=== PATIENT | male | born 1965 | race Caucasian/White ===

== ENCOUNTER 2017-11-10 12:14 | Emergency (ER) | payer BC ==
[2017-11-10] MEDS: LIDOCAINE WITH 8.4% SOD BICARB 3 ML DISP.SYRIN. INJ (13:00)
== END 2017-11-10 13:10 | disposition home or self-care (01) ==
LOC: ER 12:14
DX: S60.451A Superficial foreign body of left index finger, initial encounter (principal); E78.00 Pure hypercholesterolemia, unspecified; I10 Essential (primary) hypertension; Z88.5 Allergy status to narcotic agent; W45.8XXA Other foreign body or object entering through skin, initial encounter; Y93.89 Activity, other specified; Y92.89 Other specified places as the place of occurrence of the external cause; Y99.8 Other external cause status
CPT/HCPCS: 10120; 99284

== ENCOUNTER 2018-11-24 18:11 | Inpatient (IN) | payer BC ==
[~2018-11-24] VITALS: Ht 172.7 cm; Wt 108.5 kg
[~2018-11-24 18:11] MED LIST: CEPH-264 PO
[2018-11-24] MEDS ORDERED: ACETAMINOPHEN 500 MG TABLET PO ONE (19:00)
[2018-11-24] MEDS ORDERED: IV NORMAL SALINE 1000ML BAG 1,000 ML IV ONE (19:00)
[2018-11-24 19:10] LABS: BASO % 0 % (0-3); EOS # 0.1 x10^3/uL (0.0-0.7); EOS % 1 % (0-3); HEMATOCRIT 42.7 % (39.0-53.0); HEMOGLOBIN 14.4 g/dL (13.0-17.5); LYMPH # 1.9 x10^3/uL (1.0-4.8); LYMPH % 25 % (24-48); MEAN CORPUSCULAR HEMOGLOBIN 29 pg (25-35); MEAN CORPUSCULAR HGB CONC 34 g/dL (31-37); MEAN CORPUSCULAR VOLUME 86 fL (79-100); MONO # 1.1 x10^3/uL (0.0-1.1); MONO % 14 % (0-9); NEUT # 4.7 x10^3uL (1.8-7.7); NEUT % 60 % (31-73); PLATELET COUNT 192 x10^3/uL (140-400); RED BLOOD COUNT 4.96 x10^6/uL (4.30-5.70); RED CELL DISTRIBUTION WIDTH 14.2 % (11.5-14.5); WHITE BLOOD COUNT 7.8 x10^3/uL (4.0-11.0)
[2018-11-24 19:12] LABS: BILIRUBIN,URINE NEGATIVE (NEG); CLARITY,URINE TURBID; COLOR,URINE YELLOW; NITRITE,URINE NEGATIVE (NEG); PROTEIN,URINE NEGATIVE (NEG-TRACE); UROBILINOGEN,URINE 0.2 mg/dL (0.2 mg/dL)
[2018-11-24 19:15] LABS: AMORPHOUS SEDIMENT,UR PRESENT /HPF; BACTERIA,URINE 0 /HPF (0-FEW); WBC,URINE 0 /HPF (0-4)
[2018-11-24 19:30] LABS: ALBUMIN 3.8 g/dL (3.4-5.0); ALBUMIN/GLOBULIN RATIO 1.1 (1.0-1.7); CREATININE 1.1 mg/dL (0.7-1.3); TOTAL BILIRUBIN 0.3 mg/dL (0.2-1.0); TOTAL PROTEIN 7.4 g/dL (6.4-8.2)
[2018-11-24] MEDS ORDERED: LIDO:MAALOX 1:1 20 ML SINGLE DOSE. SWSW ONE (19:45)
[2018-11-24] MEDS ORDERED: POTASSIUM CHLORIDE 20 MEQ/15 ML ORAL LIQUID. PO ONE (20:00)
--- NOTE | 2018-11-24 20:11 | RAD ---
CT head without contrast PQRS statement: CT scans at this facility use dose reduction including either automated exposure control, iterative reconstructions, and /or weight based radiation dosing via mA and kV modification when appropriate to reduce radiation dose to as low as reasonably achievable. HISTORY: Headache, fever. FINDINGS: Mild cervical tonsil ectopia at the foramen magnum. Extensive frontal and parietal white matter hypoattenuation. There may be a chronic infarct measuring 2 cm at the right frontal lobe above the sylvian fissure. No intracranial hemorrhage, mass or hydrocephalus. Left maxillary sinus fluid extending outside the [id number]. Orbits, mastoids and bones are unremarkable. IMPRESSION: 1. No acute intracranial CT abnormality. 2. Left maxillary sinus fluid could represent sinusitis. 3. Extensive cerebral frontal and parietal lobe white matter hypoattenuation could represent advanced changes of chronic microvascular ischemic disease or changes of extensive inflammatory white matter demyelination such as from multiple sclerosis. 4. 2 cm wedge-shaped chronic right frontal infarct. Electronically signed by: Scott Mesa MD (11/24/2018 8:08 PM) [facility]
[2018-11-24] MEDS ORDERED: ASPIRIN CHEWABLE 81 MG TABLET. PO ONE (21:30)
[2018-11-24] MEDS ORDERED: MORPHINE SULFATE 4 MG/ML VIAL. IV PRN (22:30)
[2018-11-24] MEDS ORDERED: IV NORMAL SALINE 1000ML BAG 1,000 ML IV SCH (22:30)
[2018-11-24] MEDS ORDERED: DOXYCYCLINE HYCLATE 100 MG in IV DEXTROSE 5% 100ML 100 ML IV ONE (23:00)
--- NOTE | 2018-11-24 23:06 | RAD ---
AP portable chest radiograph 11/24/2018 Clinical History: Chest pain and fever. An AP erect portable digital radiograph of the chest was obtained. Comparison study is dated 08/06/2006. The cardiac silhouette is mildly enlarged. The thoracic aorta is tortuous. No acute pulmonary infiltrate is seen. No pleural effusion or pneumothorax is noted. The osseous structures are grossly intact. Impression: No acute abnormality is seen. Electronically signed by: Chevy Mcfarlane MD (11/24/2018 11:03 PM) [facility]
[2018-11-24 23:35] VITALS: BP 166/84
[2018-11-24] MEDS ORDERED: AMLO10TA8 PO (23:51)
[2018-11-24] MEDS ORDERED: CRESTOR5 MG PO (23:51)
[2018-11-24] MEDS ORDERED: OMEP40CA5 PO (23:51)
[2018-11-24] MEDS ORDERED: LOSA100T14 PO (23:51)
[2018-11-25] VITALS (9 sets, daily range): BP systolic 137–180; BP diastolic 79–98
[2018-11-25] MEDS ORDERED: OXYM-27 NS (01:25)
--- NOTE | 2018-11-25 01:50 | NUR ---
Patient admitted to CVC from ED with CP as diagnosis. Patient denies CP on admission to floor. RN explained where call light is. how to operated TV. Changed patient to tele gown with pocket obtained vitals admission assessment. RN will continue to monitor.
--- NOTE | 2018-11-25 02:53 | PHYS DOC ---
Past Medical History Past Medical History: GERD, High Cholesterol, Hypertension Past Surgical History: Other Additional Past Surgical Histo: KIDNEY STONE Alcohol Use: Occasionally Drug Use: Marijuana Social History Narrative: LAST USE LAST NIGHT Adult General Chief Complaint Chief Complaint: CHEST PAIN HPI HPI Patient is a 52 year old male presents with multiple complaints. His initial primary chief complaint was that of some chest discomfort described as a tightness and aching across the front of his chest he had a driving to work and also driving home he says it is worse when he coughs he is mostly a dry cough occasional yellow sputum in addition he has a headache he says he has had a headache for the last 24 hours front of the head feels like pressure he feels l irvin his sinuses are clogged up. In addition he just feels weak overall he felt like both of his legs were pretty weak. He was Hard for him to get around when he came home from work he just laid down she did not want to walk anymore. He does report a prior history of may be is some strokelike symptoms about 25 years ago. He says that he woke up in 1989 and he could not move his left side but he got up and went to work anyway and it gradually went away. Currently not having any numbness tingling or asymmetric weakness. Review of Systems Review of Systems Constitutional: Denies fever or chills [] Eyes: Denies change in visual acuity, redness, or eye pain [] HENT: Denies nasal congestion or sore throat [] Respiratory: Denies cough or shortness of breath [] Cardiovascular: No additional information not addressed in HPI [] GI: Denies abdominal pain, nausea, vomiting, bloody stools or diarrhea [] : Denies dysuria or hematuria [] Musculoskeletal: Denies back pain or joint pain [] Integument: Denies rash or skin lesions [] Neurologic: Denies headache, focal weakness or sensory changes [] Endocrine: Denies polyuria or polydipsia [] All other systems were reviewed and found to be within normal limits, except as documented in this note. Current Medications Current Medications Current Medications Medications (Trade) Dose Ordered Sig/Bg Start Time Stop Time Status Last Admin Dose Admin Acetaminophen (Tylenol) 1,000 mg 1X ONCE 11/24/18 19:00 11/24/18 19:01 DC 11/24/18 19:00 1,000 MG Multi-Ingredient Mouthwash/Gargle (Gi Cocktail) 20 ml 1X ONCE 11/24/18 19:45 11/24/18 19:46 DC 11/24/18 19:59 20 ML Potassium Chloride (KCl Oral Soln) 40 meq 1X ONCE 11/24/18 20:00 11/24/18 20:01 DC 11/24/18 19:59 40 MEQ Sodium Chloride 1,000 ml @ 1,000 mls/hr 1X ONCE 11/24/18 19:00 11/24/18 19:59 DC 11/24/18 19:01 1,000 MLS/HR Allergies Allergies Allergies Coded Allergies Type Severity Reaction Last Updated Verified hydrocodone Allergy Intermediate Itching 11/10/17 Yes Physical Exam Physical Exam Constitutional: Well developed, well nourished, no acute distress, non-toxic appearance. [] HENT: Normocephalic, atraumatic, bilateral external ears normal, oropharynx moist, no oral exudates, nose normal. []Patient does have some frontal area sinus tenderness Eyes: PERRLA, EOMI, conjunctiva normal, no discharge. [] Neck: Normal range of motion, no tenderness, supple, no stridor. [] Cardiovascular:Heart rate regular rhythm, no murmur [] Lungs & Thorax: Bilateral breath sounds clear to auscultation [] Abdomen: Bowel sounds normal, soft, no tenderness, no masses, no pulsatile fifi s. [] Skin: Warm, dry, no erythema, no rash. [] Back: No tenderness, no CVA tenderness. [] Extremities: No tenderness, no cyanosis, no clubbing, ROM intact, no edema. [] Neurologic: Alert and oriented X 3, normal motor function, normal sensory function, no focal deficits noted. []NIH stroke scale is 0 Psychologic: Affect normal, judgement normal, mood normal. [] Current Patient Data Vital Signs Vital Signs Date Time Temp Pulse Resp B/P (MAP) Pulse Ox O2 Delivery O2 Flow Rate FiO2 11/24/18 21:00 86 20 151/79 (103) 97 Room Air 11/24/18 18:17 99.0 99.0 Lab Values Laboratory Tests Test 11/24/18 18:22 11/24/18 19:02 White Blood Count 7.8 x10^3/uL (4.0-11.0) Red Blood Count 4.96 x10^6/uL (4.30-5.70) Hemoglobin 14.4 g/dL (13.0-17.5) Hematocrit 42.7 % (39.0-53.0) Mean Corpuscular Volume 86 fL (79-100) Mean Corpuscular Hemoglobin 29 pg (25-35) Mean Corpuscular Hemoglobin Concent 34 g/dL (31-37) Red Cell Distribution Width 14.2 % (11.5-14.5) Platelet Count 192 x10^3/uL (140-400) Neutrophils (%) (Auto) 60 % (31-73) Lymphocytes (%) (Auto) 25 % (24-48) Monocytes (%) (Auto) 14 % (0-9) H Eosinophils (%) (Auto) 1 % (0-3) Basophils (%) (Auto) 0 % (0-3) Neutrophils # (Auto) 4.7 x10^3uL (1.8-7.7) Lymphocytes # (Auto) 1.9 x10^3/uL (1.0-4.8) Monocytes # (Auto) 1.1 x10^3/uL (0.0-1.1) Eosinophils # (Auto) 0.1 x10^3/uL (0.0-0.7) Basophils # (Auto) 0.0 x10^3/uL (0.0-0.2) Sodium Level 140 mmol/L (136-145) Potassium Level 3.0 mmol/L (3.5-5.1) L Chloride Level 102 mmol/L (98-107) Carbon Dioxide Level 28 mmol/L (21-32) Anion Gap 10 (6-14) Blood Urea Nitrogen 12 mg/dL (8-26) Creatinine 1.1 mg/dL (0.7-1.3) Estimated GFR (Cockcroft-Gault) 70.0 BUN/Creatinine Ratio 11 (6-20) Glucose Level 107 mg/dL (70-99) H Calcium Level 9.0 mg/dL (8.5-10.1) Total Bilirubin 0.3 mg/dL (0.2-1.0) Aspartate Amino Transferase (AST) 29 U/L (15-37) Alanine Aminotransferase (ALT) 49 U/L (16-63) Alkaline Phosphatase 108 U/L (46-116) Creatine Kinase 145 U/L (39-308) Troponin I Quantitative < 0.017 ng/mL (0.000-0.055) Total Protein 7.4 g/dL (6.4-8.2) Albumin 3.8 g/dL (3.4-5.0) Albumin/Globulin Ratio 1.1 (1.0-1.7) Lipase 176 U/L (73-393) Urine Collection Type Unknown Urine Color Yellow Urine Clarity Turbid Urine pH 7.0 Urine Specific [place] 1.015 Urine Protein Negative mg/dL (NEG-TRACE) Urine Glucose (UA) Negative mg/dL (NEG) Urine Ketones (Stick) Negative mg/dL (NEG) Urine Blood Small (NEG) Urine Nitrite Negative (NEG) Urine Bilirubin Negative (NEG) Urine Urobilinogen Dipstick 0.2 mg/dL (0.2 mg/dL) Urine Leukocyte Esterase Negative (NEG) Urine RBC 1-2 /HPF (0-2) Urine WBC 0 /HPF (0-4) Urine Amorphous Sediment Present /HPF Urine Bacteria 0 /HPF (0-FEW) Laboratory Tests 11/24/18 18:22 Laboratory Tests 11/24/18 18:22 EKG EKG []Normal sinus rhythm rate of 78 there is some borderline nonspecific ST changes in 1 and aVL i could argue for subcentimeter depression potentially no STEMI Radiology/Procedures Radiology/Procedures IMPRESSION: 1. No acute intracranial CT abnormality. 2. Left maxillary sinus fluid could represent sinusitis. 3. Extensive cerebral frontal and parietal lobe white matter hypoattenuation could represent advanced changes of chronic microvascular ischemic disease or changes of extensive inflammatory white matter demyelination such as from multiple sclerosis. 4. 2 cm wedge-shaped chronic right frontal infarct. Electronically signed by: Scott Mesa MD (11/24/2018 8:08 PM) [facility] [] Impressions: Comparison study is dated 08/06/2006. The cardiac silhouette is mildly enlarged. The thoracic aorta is tortuous. No acute pulmonary infiltrate is seen. No pleural effusion or pneumothorax is noted. The osseous structures are grossly intact. Impression: No acute abnormality is seen. Electronically signed by: Chevy Mcfarlane MD (11/24/2018 11:03 PM) [facility] DICTATED and SIGNED BY: CHEVY MCFARLANE MD DATE: 11/24/18 7631 Course & Med Decision Making Course & Med Decision Making Pertinent Labs and Imaging studies reviewed. (See chart for details) []52-year-old male history of smoking obesity hypertension hyperlipidemia presenting with multiple complaints. He does have a temp of 100.4 He complained of some chest pain there was a component of worsening with cough but also some typical features EKG was not stone cold normal first troponin negative. Multiple risk factors for coronary artery disease. CT head was done due to complaint of headache and generalized weakness. age- indeterminate infarct noted patient is not having any focal neurologic findings at this time strength intact against resistance in all 4 extremities noted the white matter changes as well as may be age related in nature less likely to be a demyelinating lesion of some kind Also sinusitis noted on CT scan. Given the fever and the generalized weakness IV antibiotics were ordered I spoke with Dr. Richardson plan to admit for serial troponins neurology cons ultation and/or MRI and antibiotics Lactic acid was normal Dragon Disclaimer Dragon Disclaimer This electronic medical record was generated, in whole or in part, using a voice recognition dictation system. Departure Departure Impression: Primary Impression: Chest pain Disposition: ADMITTED INPATIENT Admitting Physician: Other Condition: STABLE Referrals: UNKNOWN PCP NAME (PCP) DEYVI HAZEL MD November 25, 2018 02:53
--- NOTE | 2018-11-25 06:45 | EKG ---
[facility] [address] [place] [address] Test Date: 2018-11-24 Test Time: 18:17:28 Pat Name: BERTRAM GALVAN Department: Room: 262 1 Gender: M Marketing Operations Associate: : [id number] Requested By: DEYVI HAZEL Order Number: [id number] Reading MD: Luis Montiel Measurements Intervals [place] Rate: 78 P: 31 ME: 156 QRS: -14 QRSD: 88 T: 49 QT: 362 QTc: 416 Interpretive Statements SINUS RHYTHM LEFTWARD AXIS Electronically Signed On 12-19-2018 11:41:37 CDT by Luis Montiel
--- NOTE | 2018-11-25 08:08 | PDOC1 ---
History and Physical Date of Admission Date of Admission DATE: 11/25/18 TIME: 08:07 Identification/Chief Complaint Chief Complaint Chest pain Source Source: Caregiver, Chart review, Patient History of Present Illness History of Present Illness Patient is a 52 year old male w/ PMHx smoker, obesity, HTN, HLD, KING on CPAP, left acquired hearing loss who presents with multiple complaints. His initial primary chief complaint was that of some chest discomfort described as a tightness and aching across the front of his chest he had a driving to work and also driving home he says it is worse when he coughs he is mostly a dry cough occasional yellow sputum in addition he has a headache he says he has had a headache for the last 24 hours front of the head feels like pressure he feels like his sinuses are clogged up. In addition he just feels weak overall he felt like both of his legs were pretty weak. He was hard for him to get around when he came home from work he just laid down she did not want to walk anymore. He notes that sporadically over the past couple of weeks his right arm has given out on him while at work. He also notes over the past 6 months he has been having small urinary incontinence and has had nocturnal enuresis x1 as well as a couple of small episodes of fecal incontinence. He also notes when he moves his eyes left he has been told he turns his head, but he does not note this until forced, then develops double vision and visual straining. On further review he notes intermittent difficulties swallowing and has been told at times that he mumbles though he feels he does not actually mumble. He does report a prior history of may be is some strokelike symptoms about 25 years ago. He says that he woke up in 1989 and he could not move his left side but he got up and went to work anyway and it gradually went away. Currently not having any numbness tingling or asymmetric weakness. In ED had EKG with slight left axis deviation, otherwise NSR. Troponin negative. CT head showed extensive cerebral frontal and parietal lobe white matter hypoattenuation could represent advanced changes of chronic microvascular ischemic disease or changes of extensive inflammatory white matter demyelination such as from multiple sclerosis and a 2 cm wedge-shaped chronic right frontal infarct. He was not aware of any prior abnormal head imaging. Past Medical History Cardiovascular: HTN Pulmonary: Other (KING) CENTRAL NERVOUS SYSTEM: TIA GI: No pertinent hx Heme/Onc: No pertinent hx Hepatobiliary: No pertinent hx Psych: No pertinent hx Musculoskeletal: Weakness Rheumatologic: No pertinent hx Infectious disease: No pertinent hx ENT: No pertinent hx Renal/: No pertinent hx Endocrine: No pertinent hx Dermatology: No pertinent hx Past Surgical History Past Surgical History: No pertinent history Family History Family History: Diabetes (Mother), High Cholestrol, Hypertension Social History Smoke: 1 pack per day ALCOHOL: rare Drugs: Marijuana Current Medications Current Medications Current Medications Acetaminophen (Tylenol) 1,000 mg 1X ONCE PO Last administered on 11/24/18at 19:00; Start 11/24/18 at 19:00; Stop 11/24/18 at 19:01; Status DC Sodium Chloride 1,000 ml @ 1,000 mls/hr 1X ONCE IV Last administered on 11/24/18at 19:01; Start 11/24/18 at 19:00; Stop 11/24/18 at 19:59; Status DC Multi-Ingredient Mouthwash/Gargle (Gi Cocktail) 20 ml 1X ONCE SWSW Last administered on 11/24/18at 19:59; Start 11/24/18 at 19:45; Stop 11/24/18 at 19:46; Status DC Potassium Chloride (KCl Oral Soln) 40 meq 1X ONCE PO Last administered on 11/24/18at 19:59; Start 11/24/18 at 20:00; Stop 11/24/18 at 20:01; Status DC Aspirin (Children'S Aspirin) 324 mg 1X ONCE PO Last administered on 11/24/18at 21:28; Start 11/24/18 at 21:30; Stop 11/24/18 at 21:31; Status DC Morphine Sulfate (Morphine Sulfate) 4 mg PRN Q2HR PRN IV SEVERE PAIN; Start 11/24/18 at 22:30; Stop 11/25/18 at 22:29 Sodium Chloride 1,000 ml @ 75 mls/hr [id number] IV Last administered on 11/24/18at 22:39; Start 11/24/18 at 22:30; Stop 11/25/18 at 22:29 Doxycycline Hyclate 100 mg/ Dextrose 100 ml @ 50 mls/hr 1X ONCE IV Last administered on 11/24/18at 22:38; Start 11/24/18 at 23:00; Stop 11/25/18 at 00:59; Status DC Active Scripts Active Keflex (Cephalexin) 500 Mg Capsule 1 Cap PO TID Reported Nasal Decongestant (Oxymetazoline Hcl) 30 Ml [place] 30 Ml NS HS Crestor (Rosuvastatin Calcium) 5 Mg Tablet 5 Mg PO HS Omeprazole 40 Mg Capsule.dr 1 Cap PO DAILY Losartan Potassium 100 Mg Tablet 100 Mg PO DAILY Amlodipine Besylate 10 Mg Tablet 10 Mg PO DAILY Allergies Allergies: Coded Allergies: hydrocodone (Verified Allergy, Intermediate, Itching, 11/10/17) ROS General: YES: Fatigue, Malaise; No: Chills, Night Sweats, Appetite, Other PSYCHOLOGICAL ROS: No: Anxiety, Behavioral Disorder, Concentration difficultie, Decreased libido, Depression, Disorientation, Hallucinations, Hostility, Irritablity, Memory difficulties, Mood Swings, Obsessive thoughts, Physical abuse, Sexual abuse, Sleep disturbances, Suicidal ideation, Other Eyes: Yes Blurry vision; No Decreased vision, No Double vision, No Dry eyes, No Excessive tearing, No Eye Pain, No Itchy Eyes, No Loss of vision, No Photophobia, No Scotomata, No Uses contacts, No Uses glasses, No Other HEENT: YES: Heacaches, Nasal congestion, Vocal changes; No: Visual Changes, Hearing change, Nasal discharge, Oral lesions, Sinus pain, Sore Throat, Epistaxis, Sneezing, Snoring, Tinnitus, Vertigo, Other ALLERGY AND IMMUNOLOGY: No: Hives, Insect Bite Sensitivity, Itchy/Watery Eyes, Nasal Congestion, Post Nasal Drip, Seasonal Allergies, Other Hematological and Lymphatic: No: Bleeding Problems, Blood Clots, Blood Transfusions, Brusing, Night Sweats, Pallor, Swollen Lymph Nodes, Other ENDOCRINE: No: Breast Changes, Galactorrhea, Hair Pattern Changes, Hot Flashes, Malaise/lethargy, Mood Swings, Palpitations, Polydipsia/polyuria, Skin Changes, Temperature Intolerance, Unexpected Weight Changes, Other Breast: No New/Changing Breast Lumps, No Nipple changes, No Nipple discharge, No Other Respiratory: No: Cough, Hemoptysis, Orthopnea, Pleuritic Pain, Shortness of breath, SOB with excertion, Sputum Changes, Stridor, Tachypnea, Wheezing, Other Cardiovascular: No Chest Pain, No Palpitations, No Orthopnea, No Paroxysmal Noc. Dyspnea, No Edema, No Lt Headedness, No Other Gastrointestinal: No Nausea, No Vomiting, No Abdominal Pain, No Diarrhea, No Co nstipation, No Melena, No Hematochezia, No Other Genitourinary: No Dysuria, No Frequency, No Incontinence, No Hematuria, No Retention, No Discharge, No Urgency, No Pain, No Flank Pain, No Other, No , No , No , No , No , No , No Musculoskeletal: Yes Gait Disturbance, Yes Muscular Weakness; No Joint Pain, No Joint Stiffness, No Joint Swelling, No Muscle Pain, No Pain In:, No Swelling In:, No Other Neurological: Yes Numbness/Tingling, Yes Speech Problems, Yes Weakness; No Behavorial Changes, No Bowel/Bladder ControlChng, No Confusion, No Dizziness, No Gait Disturbance, No Headaches, No Impaired Coord/balance, No Memory Loss, No Seizures, No Tremors, No Visual Changes, No Other Skin: No Dry Skin, No Eczema, No Hair Changes, No Lumps, No Mole Changes, No Mottling, No Nail Changes, No Pruritus, No Rash, No Skin Lesion Changes, No Other, No Acne Physical Exam General: Alert, Oriented X3, Cooperative, No acute distress HEENT: Atraumatic, PERRLA, EOMI, Mucous membr. moist/pink Lungs: Clear to auscultation, Normal air movement Heart: S1S2, RRR, no gallops, no murmurs Abdomen: Normal bowel sounds, Soft, No tenderness, No hepatosplenomegaly, No masses Rectal Exam: not examined Extremities: No clubbing, No cyanosis, No edema, Normal pulses, No tenderness/swelling Skin: No rashes, No breakdown, No significant lesion Neuro: Normal gait, Normal speech, Strength at 5/5 X4 ext, Normal tone, Sensation intact, Cranial nerves 3-12 NL, Reflexes 2+ Psych/Mental Status: Mental status NL, Mood NL Vitals Vitals Vital Signs Date Time Temp Pulse Resp B/P (MAP) Pulse Ox O2 Delivery O2 Flow Rate FiO2 11/25/18 07:45 180/89 (119) 11/25/18 07:00 98.2 80 18 93 Room Air 98.2 Labs Labs Laboratory Tests Test 11/24/18 18:22 11/24/18 19:02 11/25/18 01:20 11/25/18 04:20 White Blood Count 7.8 x10^3/uL (4.0-11.0) Red Blood Count 4.96 x10^6/uL (4.30-5.70) Hemoglobin 14.4 g/dL (13.0-17.5) Hematocrit 42.7 % (39.0-53.0) Mean Corpuscular Volume 86 fL (79-100) Mean Corpuscular Hemoglobin 29 pg (25-35) Mean Corpuscular Hemoglobin Concent 34 g/dL (31-37) Red Cell Distribution Width 14.2 % (11.5-14.5) Platelet Count 192 x10^3/uL (140-400) Neutrophils (%) (Auto) 60 % (31-73) Lymphocytes (%) (Auto) 25 % (24-48) Monocytes (%) (Auto) 14 % (0-9) Eosinophils (%) (Auto) 1 % (0-3) Basophils (%) (Auto) 0 % (0-3) Neutrophils # (Auto) 4.7 x10^3uL (1.8-7.7) Lymphocytes # (Auto) 1.9 x10^3/uL (1.0-4.8) Monocytes # (Auto) 1.1 x10^3/uL (0.0-1.1) Eosinophils # (Auto) 0.1 x10^3/uL (0.0-0.7) Basophils # (Auto) 0.0 x10^3/uL (0.0-0.2) Sodium Level 140 mmol/L (136-145) Potassium Level 3.0 mmol/L (3.5-5.1) Chloride Level 102 mmol/L (98-107) Carbon Dioxide Level 28 mmol/L (21-32) Anion Gap 10 (6-14) Blood Urea Nitrogen 12 mg/dL (8-26) Creatinine 1.1 mg/dL (0.7-1.3) Estimated GFR (Cockcroft-Gault) 70.0 BUN/Creatinine Ratio 11 (6-20) Glucose Level 107 mg/dL (70-99) Calcium Level 9.0 mg/dL (8.5-10.1) Total Bilirubin 0.3 mg/dL (0.2-1.0) Aspartate Amino Transf (AST/SGOT) 29 U/L (15-37) Alanine Aminotransferase (ALT/SGPT) 49 U/L (16-63) Alkaline Phosphatase 108 U/L (46-116) Creatine Kinase 145 U/L (39-308) Troponin I Quantitative < 0.017 ng/mL (0.000-0.055) 0.021 ng/mL (0.000-0.055) 0.030 ng/mL (0.000-0.055) Total Protein 7.4 g/dL (6.4-8.2) Albumin 3.8 g/dL (3.4-5.0) Albumin/Globulin Ratio 1.1 (1.0-1.7) Lipase 176 U/L (73-393) Urine Collection Type Unknown Urine Color Yellow Urine Clarity Turbid Urine pH 7.0 Urine Specific [place] 1.015 Urine Protein Negative mg/dL (NEG-TRACE) Urine Glucose (UA) Negative mg/dL (NEG) Urine Ketones (Stick) Negative mg/dL (NEG) Urine Blood Small (NEG) Urine Nitrite Negative (NEG) Urine Bilirubin Negative (NEG) Urine Urobilinogen Dipstick 0.2 mg/dL (0.2 mg/dL) Urine Leukocyte Esterase Negative (NEG) Urine RBC 1-2 /HPF (0-2) Urine WBC 0 /HPF (0-4) Urine Amorphous Sediment Present /HPF Urine Bacteria 0 /HPF (0-FEW) Lactic Acid Level 0.7 mmol/L (0.4-2.0) Laboratory Tests Test 11/24/18 18:22 11/24/18 19:02 11/25/18 01:20 11/25/18 04:20 White Blood Count 7.8 x10^3/uL (4.0-11.0) Red Blood Count 4.96 x10^6/uL (4.30-5.70) Hemoglobin 14.4 g/dL (13.0-17.5) Hematocrit 42.7 % (39.0-53.0) Mean Corpuscular Volume 86 fL (79-100) Mean Corpuscular Hemoglobin 29 pg (25-35) Mean Corpuscular Hemoglobin Concent 34 g/dL (31-37) Red Cell Distribution Width 14.2 % (11.5-14.5) Platelet Count 192 x10^3/uL (140-400) Neutrophils (%) (Auto) 60 % (31-73) Lymphocytes (%) (Auto) 25 % (24-48) Monocytes (%) (Auto) 14 % (0-9) Eosinophils (%) (Auto) 1 % (0-3) Basophils (%) (Auto) 0 % (0-3) Neutrophils # (Auto) 4.7 x10^3uL (1.8-7.7) Lymphocytes # (Auto) 1.9 x10^3/uL (1.0-4.8) Monocytes # (Auto) 1.1 x10^3/uL (0.0-1.1) Eosinophils # (Auto) 0.1 x10^3/uL (0.0-0.7) Basophils # (Auto) 0.0 x10^3/uL (0.0-0.2) Sodium Level 140 mmol/L (136-145) Potassium Level 3.0 mmol/L (3.5-5.1) Chloride Level 102 mmol/L (98-107) Carbon Dioxide Level 28 mmol/L (21-32) Anion Gap 10 (6-14) Blood Urea Nitrogen 12 mg/dL (8-26) Creatinine 1.1 mg/dL (0.7-1.3) Estimated GFR (Cockcroft-Gault) 70.0 BUN/Creatinine Ratio 11 (6-20) Glucose Level 107 mg/dL (70-99) Calcium Level 9.0 mg/dL (8.5-10.1) Total Bilirubin 0.3 mg/dL (0.2-1.0) Aspartate Amino Transf (AST/SGOT) 29 U/L (15-37) Alanine Aminotransferase (ALT/SGPT) 49 U/L (16-63) Alkaline Phosphatase 108 U/L (46-116) Creatine Kinase 145 U/L (39-308) Troponin I Quantitative < 0.017 ng/mL (0.000-0.055) 0.021 ng/mL (0.000-0.055) 0.030 ng/mL (0.000-0.055) Total Protein 7.4 g/dL (6.4-8.2) Albumin 3.8 g/dL (3.4-5.0) Albumin/Globulin Ratio 1.1 (1.0-1.7) Lipase 176 U/L (73-393) Urine Collection Type Unknown Urine Color Yellow Urine Clarity Turbid Urine pH 7.0 Urine Specific [place] 1.015 Urine Protein Negative mg/dL (NEG-TRACE) Urine Glucose (UA) Negative mg/dL (NEG) Urine Ketones (Stick) Negative mg/dL (NEG) Urine Blood Small (NEG) Urine Nitrite Negative (NEG) Urine Bilirubin Negative (NEG) Urine Urobilinogen Dipstick 0.2 mg/dL (0.2 mg/dL) Urine Leukocyte Esterase Negative (NEG) Urine RBC 1-2 /HPF (0-2) Urine WBC 0 /HPF (0-4) Urine Amorphous Sediment Present /HPF Urine Bacteria 0 /HPF (0-FEW) Lactic Acid Level 0.7 mmol/L (0.4-2.0) Images Images CT head - 1. No acute intracranial CT abnormality. 2. Left maxillary sinus fluid could represent sinusitis. 3. Extensive cerebral frontal and parietal lobe white matter hypoattenuation could represent advanced changes of chronic microvascular ischemic disease or changes of extensive inflammatory white matter demyelination such as from multiple sclerosis. 4. 2 cm wedge-shaped chronic right frontal infarct. CXR - Cardiac silhouette is enlarged. No acute abnormality is seen. VTE Prophylaxis Ordered VTE Prophylaxis Devices: Yes VTE Pharmacological Prophylaxi: No Assessment/Plan Assessment/Plan A/P: Chest discomfort - is epigastric discomfort and weakness more than pain. Negative initial EKG - NSR with slight left axis, no TWI or ST segment changes and troponin negative. No abnormal telemetry for the past 14 hours Bilateral leg weakness - with right arm weakness, fecal and urinary incontinence and left visual problems with CT findings concerning for possible lesions I am concerned this may be a presentation of MS. Will get MRI brain and c-spine and consult neuro. May need oligoclonal bands, LP checked as well. I have d/w him and his . 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
[2018-11-25 08:33] LABS: CALCIUM 8.6 mg/dL (8.5-10.1); GFR 78.2; MAGNESIUM 1.9 mg/dL (1.8-2.4); POTASSIUM 3.3 mmol/L (3.5-5.1)
[2018-11-25] MEDS: LOSARTAN POTASSIUM 50 MG TABLET. PO SCH (09:21)
[2018-11-25] MEDS: amLODIPine BESYLATE 10 MG TABLET PO SCH (09:22)
[2018-11-25] MEDS ORDERED: POTASSIUM CHLORIDE 20 MEQ TABLET.ER. PO ONE (09:30)
[2018-11-25] MEDS ORDERED: MAGNESIUM SULFATE 1GM 100 ML IV ONE (09:30)
[2018-11-25] MEDS: ACETAMINOPHEN 325 MG TABLET. PO PRN (10:16)
--- NOTE | 2018-11-25 11:51 | NUR ---
Pt transferred from [facility] at approximately 1151. Client was A&Ox4, VSS, denies pain/N/V. will continue to monitor.
[2018-11-25] MEDS ORDERED: GADOTERATE 5 MMOL/10ML VIAL. IVP ONE ×2 (16:00)
--- NOTE | 2018-11-25 17:42 | PDOC2 ---
NEUROLOGY CONSULT Date of Admission Date of Admission DATE: 11/25/18 TIME: 17:19 Reason for Consult Reason for Consult: IMPRESSION: Headaches. Vision disturbances. LE weakness and numbness x 1 day. UE numbness in the past. MS? HTN. HLD. GERD. Smoking x 40 years. RECOMMENDATIONS/PLAN: Brain MRI w/wo contrast. C-spine MRI w/wo contrast. Lab: see orders. LP maybe needed. Smoking cessation. Discussed with his at bedside on 11/25/18. HISTORY OF THE PRESENT ILLNESS: This is a 52 -year-old male with longstanding history of smoking 1 pack a day for over 40 years and PMH of HTN, HLD, KING on CPAP, left acquired hearing loss. His initial primary chief complaint was that of some chest discomfort described as a tightness and aching across the front of his chest he had a driving to work and also driving home he says it is worse when he coughs he is mostly a dry cough occasional yellow sputum in addition he has a headache he says he has had a headache for the last 24 hours front of the head feels like pressure he feels like his sinuses are clogged up. He stated he did not feeling well but he had difficulties describe his feeling. He stated he had weakness in his bilateral LE for 1-2 days, but not urinary of bowel dysfunction. He said he had symptoms of numbness in his UE especially his right UE several months ago. His CT head showed extensive cerebral frontal and parietal lobe white matter hypoattenuation could represent advanced changes of chronic microvascular ischemic disease or changes of extensive inflammatory white matter demyelination such as from multiple sclerosis and a 2 cm wedge- shaped chronic right frontal infarct. He was not aware of any prior abnormal head imaging. Past Medical History Cardiovascular: HTN Pulmonary: Other (KING) CENTRAL NERVOUS SYSTEM: TIA GI: No pertinent hx Heme/Onc: No pertinent hx Hepatobiliary: No pertinent hx Psych: No pertinent hx Musculoskeletal: Weakness Rheumatologic: No pertinent hx Infectious disease: No pertinent hx ENT: No pertinent hx Renal/: No pertinent hx Endocrine: No pertinent hx Dermatology: No pertinent hx Past Surgical History No pertinent history Family History Diabetes (Mother), High Cholestrol, Hypertension Social History Smoke: 1 pack per day ALCOHOL: rare Drugs: Marijuana Allergies Coded Allergies: hydrocodone (Verified Allergy, Intermediate, Itching, 11/10/17) MEDICATIONS: Refer to MAR REVIEW OF SYSTEMS: Constitutional: Obesity. Head: No recent traumatic brain or head injury. Skin: No edema, or rash. Ear: No infection. Eyes: No vision loss or color blindness. Nose: No bleeding or purulent discharges. Hearing: No hearing decrease. Neck: No injury. Cardiac: HTN, HLD. Pulmonary: Smoking. GI: GERD. Urinary/genital: No dysuria, incontinence, urinary retention. Endocrinologic: Obesity. Skeletomuscular: No muscular atrophy. Neurological: see HP. Psychiatric: Denies drug use/abuse. Otherwise, not [id number] review of systems. PHYSICAL EXAMINATION: General appearance is in subacute distress. HEENT: Normocephalic and nontraumatic. Eyes, nose, ears, and throat are unremarkable. Neck is supple. No lymphadenopathy. No crepitus. Cardiovascular: S1, S2, regular rate and rhythm. Pulmonary: Clear to auscultation bilaterally. Abdomen: Bowel sounds are positive. Abdomen is soft, nontender, and nondistended. Extremities: No rash, lesions, or edema. No restriction of range of motion NEUROLOGICAL EXAMINATION: Alert Oriented to time, place and person. PERRL. EOMI. CN: no focal findings. Muscle tone: within normal. Muscle strength: 5 DTR: 2 Plantar reflex: Flexor response bilaterally Gait: not examined in bed. Sensory exam: no abnormal findings. No cerebellar signs elicited. F-T-N test fine. Current Medications Current Medications Current Medications Acetaminophen (Tylenol) 1,000 mg 1X ONCE PO Last administered on 11/24/18at 19 :00; Start 11/24/18 at 19:00; Stop 11/24/18 at 19:01; Status DC Sodium Chloride 1,000 ml @ 1,000 mls/hr 1X ONCE IV Last administered on 11/24/18 19:01; Start 11/24/18 at 19:00; Stop 11/24/18 at 19:59; Status DC Multi-Ingredient Mouthwash/Gargle (Gi Cocktail) 20 ml 1X ONCE SWSW Last administered on 11/24/18 19:59; Start 11/24/18 at 19:45; Stop 11/24/18 at 19:46; Status DC Potassium Chloride (KCl Oral Soln) 40 meq 1X ONCE PO Last administered on 11/24/18at 19:59; Start 11/24/18 at 20:00; Stop 11/24/18 at 20:01; Status DC Aspirin (Children'S Aspirin) 324 mg 1X ONCE PO Last administered on 11/24/18 21:28; Start 11/24/18 at 21:30; Stop 11/24/18 at 21:31; Status DC Morphine Sulfate (Morphine Sulfate) 4 mg PRN Q2HR PRN IV SEVERE PAIN; Start 11/24/18 at 22:30; Stop 11/25/18 at 22:29 Sodium Chloride 1,000 ml @ 75 mls/hr [id number] IV Last administered on 11/24/18 22:39; Start 11/24/18 at 22:30; Stop 11/25/18 at 10:45; Status DC Doxycycline Hyclate 100 mg/ Dextrose 100 ml @ 50 mls/hr 1X ONCE IV Last administered on 11/24/18 22:38; Start 11/24/18 at 23:00; Stop 11/25/18 at 00:59; Status DC Amlodipine Besylate (Norvasc) 10 mg DAILY PO Last administered on 11/25/18 09:22; Start 11/25/18 at 09:30 Losartan Potassium (Cozaar) 100 mg DAILY PO Last administered on 11/25/18 09:21; Start 11/25/18 at 09:30 Pantoprazole Sodium (Protonix) 40 mg DAILYAC PO ; Start 11/26/18 at 07:30 Atorvastatin Calcium (Lipitor) 20 mg QHS PO ; Start 11/25/18 at 21:00 Potassium Chloride (Klor-Con) 40 meq 1X ONCE PO Last administered on 11/25/18 09:23; Start 11/25/18 at 09:30; Stop 11/25/18 at 09:31; Status DC Magnesium Sulfate/ Dextrose 100 ml @ 100 mls/hr 1X ONCE IV Last administered on 11/25/18 09:20; Start 11/25/18 at 09:30; Stop 11/25/18 at 10:29; Status DC Acetaminophen (Tylenol) 650 mg PRN Q6HRS PRN PO HEADACHE/TEMP Last administered on 11/25/18 10:16; Start 11/25/18 at 10:15 Gadoterate Meglumine (Dotarem) 10 ml 1X ONCE IVP Last administered on 5/14/19at 16:00; Start 11/25/18 at 16:00; Stop 11/25/18 at 16:25; Status DC Gadoterate Meglumine (Dotarem) 10 ml 1X ONCE IVP Last administered on 11/25/18at 16:00; Start 11/25/18 at 16:00; Stop 11/25/18 at 16:25; Status DC Doxycycline Hyclate (Vibra-Tab) 100 mg BID PO ; Start 11/25/18 at 18:00 Active Scripts Active Keflex (Cephalexin) 500 Mg Capsule 1 Cap PO TID Reported Nasal Decongestant (Oxymetazoline Hcl) 30 Ml Tolley 30 Ml NS HS Crestor (Rosuvastatin Calcium) 5 Mg Tablet 5 Mg PO HS Omeprazole 40 Mg Capsule.dr 1 Cap PO DAILY Losartan Potassium 100 Mg Tablet 100 Mg PO DAILY Amlodipine Besylate 10 Mg Tablet 10 Mg PO DAILY Allergies Allergies: Allergies Coded Allergies Type Severity Reaction Last Updated Verified hydrocodone Allergy Intermediate Itching 11/10/17 Yes ROS Review of System The patient denies any associated fevers, chills, headache, ear pain, rhinorrhea, sore throat, stiff neck, productive cough, chest pain, shortness of breath, back or flank pain, abdominal pain, nausea, vomiting, diarrhea, constipation, dysuria, rash, numbness, weakness, tingling, incontinence, difficulty ambulating, or diaphoresis. Physical Exam Physical Exam General: Well developed, well nourished, no acute distress, well appearing HEENT: Pupils equally round and reactive to light, EOMI, no discharge, normal conjunctiva Neck: Supple, no nuchal rigidity, no JVD, trachea midline, no tenderness Cardiac: RRR, no murmurs, no gallops, no rubs Chest/Lungs: CTAB, no wheeze, no rhonchi, no crackles Abdomen: soft, non-distended, no guarding, no peritoneal signs, non-tender Back: No tenderness Extremities: no edema, pulses intact, non-tender,capillary refill <3 sec bilateral upper and lower extremities, Neuro: Alert and oriented x 4, no focal deficits, normal speech Vitals Vitals: Vital Signs Date Time Temp Pulse Resp B/P (MAP) Pulse Ox O2 Delivery O2 Flow Rate FiO2 11/25/18 12:46 98.4 78 149/82 (104) Room Air 98.4 11/25/18 11:00 18 92 Labs Labs Laboratory Tests Test 11/24/18 18:22 11/24/18 19:02 11/25/18 01:20 11/25/18 04:20 White Blood Count 7.8 x10^3/uL (4.0-11.0) Red Blood Count 4.96 x10^6/uL (4.30-5.70) Hemoglobin 14.4 g/dL (13.0-17.5) Hematocrit 42.7 % (39.0-53.0) Mean Corpuscular Volume 86 fL (79-100) Mean Corpuscular Hemoglobin 29 pg (25-35) Mean Corpuscular Hemoglobin Concent 34 g/dL (31-37) Red Cell Distribution Width 14.2 % (11.5-14.5) Platelet Count 192 x10^3/uL (140-400) Neutrophils (%) (Auto) 60 % (31-73) Lymphocytes (%) (Auto) 25 % (24-48) Monocytes (%) (Auto) 14 % (0-9) Eosinophils (%) (Auto) 1 % (0-3) Basophils (%) (Auto) 0 % (0-3) Neutrophils # (Auto) 4.7 x10^3uL (1.8-7.7) Lymphocytes # (Auto) 1.9 x10^3/uL (1.0-4.8) Monocytes # (Auto) 1.1 x10^3/uL (0.0-1.1) Eosinophils # (Auto) 0.1 x10^3/uL (0.0-0.7) Basophils # (Auto) 0.0 x10^3/uL (0.0-0.2) Sodium Level 140 mmol/L (136-145) 142 mmol/L (136-145) Potassium Level 3.0 mmol/L (3.5-5.1) 3.3 mmol/L (3.5-5.1) Chloride Level 102 mmol/L (98-107) 103 mmol/L (98-107) Carbon Dioxide Level 28 mmol/L (21-32) 25 mmol/L (21-32) Anion Gap 10 (6-14) 14 (6-14) Blood Urea Nitrogen 12 mg/dL (8-26) 11 mg/dL (8-26) Creatinine 1.1 mg/dL (0.7-1.3) 1.0 mg/dL (0.7-1.3) Estimated GFR (Cockcroft-Gault) 70.0 78.2 BUN/Creatinine Ratio 11 (6-20) Glucose Level 107 mg/dL (70-99) 112 mg/dL (70-99) Calcium Level 9.0 mg/dL (8.5-10.1) 8.6 mg/dL (8.5-10.1) Total Bilirubin 0.3 mg/dL (0.2-1.0) Aspartate Amino Transf (AST/SGOT) 29 U/L (15-37) Alanine Aminotransferase (ALT/SGPT) 49 U/L (16-63) Alkaline Phosphatase 108 U/L (46-116) Creatine Kinase 145 U/L (39-308) Troponin I Quantitative < 0.017 ng/mL (0.000-0.055) 0.021 ng/mL (0.000-0.055) 0.030 ng/mL (0.000-0.055) Total Protein 7.4 g/dL (6.4-8.2) Albumin 3.8 g/dL (3.4-5.0) Albumin/Globulin Ratio 1.1 (1.0-1.7) Lipase 176 U/L (73-393) Urine Collection Type Unknown Urine Color Yellow Urine Clarity Turbid Urine pH 7.0 Urine Specific Hamilton 1.015 Urine Protein Negative mg/dL (NEG-TRACE) Urine Glucose (UA) Negative mg/dL (NEG) Urine Ketones (Stick) Negative mg/dL (NEG) Urine Blood Small (NEG) Urine Nitrite Negative (NEG) Urine Bilirubin Negative (NEG) Urine Urobilinogen Dipstick 0.2 mg/dL (0.2 mg/dL) Urine Leukocyte Esterase Negative (NEG) Urine RBC 1-2 /HPF (0-2) Urine WBC 0 /HPF (0-4) Urine Amorphous Sediment Present /HPF Urine Bacteria 0 /HPF (0-FEW) Lactic Acid Level 0.7 mmol/L (0.4-2.0) Magnesium Level 1.9 mg/dL (1.8-2.4) Vitamin B12 Level 554 pg/mL (247-911) Thyroid Stimulating Hormone (TSH) 4.792 uIU/mL (0.358-3.74) Test 11/25/18 12:40 Troponin I Quantitative 0.022 ng/mL (0.000-0.055) Laboratory Tests Test 11/24/18 18:22 11/24/18 19:02 11/25/18 01:20 11/25/18 04:20 White Blood Count 7.8 x10^3/uL (4.0-11.0) Red Blood Count 4.96 x10^6/uL (4.30-5.70) Hemoglobin 14.4 g/dL (13.0-17.5) Hematocrit 42.7 % (39.0-53.0) Mean Corpuscular Volume 86 fL (79-100) Mean Corpuscular Hemoglobin 29 pg (25-35) Mean Corpuscular Hemoglobin Concent 34 g/dL (31-37) Red Cell Distribution Width 14.2 % (11.5-14.5) Platelet Count 192 x10^3/uL (140-400) Neutrophils (%) (Auto) 60 % (31-73) Lymphocytes (%) (Auto) 25 % (24-48) Monocytes (%) (Auto) 14 % (0-9) Eosinophils (%) (Auto) 1 % (0-3) Basophils (%) (Auto) 0 % (0-3) Neutrophils # (Auto) 4.7 x10^3uL (1.8-7.7) Lymphocytes # (Auto) 1.9 x10^3/uL (1.0-4.8) Monocytes # (Auto) 1.1 x10^3/uL (0.0-1.1) Eosinophils # (Auto) 0.1 x10^3/uL (0.0-0.7) Basophils # (Auto) 0.0 x10^3/uL (0.0-0.2) Sodium Level 140 mmol/L (136-145) 142 mmol/L (136-145) Potassium Level 3.0 mmol/L (3.5-5.1) 3.3 mmol/L (3.5-5.1) Chloride Level 102 mmol/L (98-107) 103 mmol/L (98-107) Carbon Dioxide Level 28 mmol/L (21-32) 25 mmol/L (21-32) Anion Gap 10 (6-14) 14 (6-14) Blood Urea Nitrogen 12 mg/dL (8-26) 11 mg/dL (8-26) Creatinine 1.1 mg/dL (0.7-1.3) 1.0 mg/dL (0.7-1.3) Estimated GFR (Cockcroft-Gault) 70.0 78.2 BUN/Creatinine Ratio 11 (6-20) Glucose Level 107 mg/dL (70-99) 112 mg/dL (70-99) Calcium Level 9.0 mg/dL (8.5-10.1) 8.6 mg/dL (8.5-10.1) Total Bilirubin 0.3 mg/dL (0.2-1.0) Aspartate Amino Transf (AST/SGOT) 29 U/L (15-37) Alanine Aminotransferase (ALT/SGPT) 49 U/L (16-63) Alkaline Phosphatase 108 U/L (46-116) Creatine Kinase 145 U/L (39-308) Troponin I Quantitative < 0.017 ng/mL (0.000-0.055) 0.021 ng/mL (0.000-0.055) 0.030 ng/mL (0.000-0.055) Total Protein 7.4 g/dL (6.4-8.2) Albumin 3.8 g/dL (3.4-5.0) Albumin/Globulin Ratio 1.1 (1.0-1.7) Lipase 176 U/L (73-393) Urine Collection Type Unknown Urine Color Yellow Urine Clarity Turbid Urine pH 7.0 Urine Specific Hamilton 1.015 Urine Protein Negative mg/dL (NEG-TRACE) Urine Glucose (UA) Negative mg/dL (NEG) Urine Ketones (Stick) Negative mg/dL (NEG) Urine Blood Small (NEG) Urine Nitrite Negative (NEG) Urine Bilirubin Negative (NEG) Urine Urobilinogen Dipstick 0.2 mg/dL (0.2 mg/dL) Urine Leukocyte Esterase Negative (NEG) Urine RBC 1-2 /HPF (0-2) Urine WBC 0 /HPF (0-4) Urine Amorphous Sediment Present /HPF Urine Bacteria 0 /HPF (0-FEW) Lactic Acid Level 0.7 mmol/L (0.4-2.0) Magnesium Level 1.9 mg/dL (1.8-2.4) Vitamin B12 Level 554 pg/mL (247-911) Thyroid Stimulating Hormone (TSH) 4.792 uIU/mL (0.358-3.74) Test 11/25/18 12:40 Troponin I Quantitative 0.022 ng/mL (0.000-0.055) JUAN JOSE FITZGERALD MD November 25, 2018 17:42
[2018-11-25 20:00] LABS: PROTHROMBIN TIME PATIENT 12.4 SEC (11.7-14.0)
[2018-11-25] MEDS: ATORVASTATIN CALCIUM 20 MG TABLET PO SCH (21:59)
[2018-11-25] MEDS: DOXYCYCLINE HYCLATE 100 MG TABLET PO SCH (22:04)
[2018-11-26 03:00] VITALS: BP 142/91
[2018-11-26] MEDS: PANTOPRAZOLE 40 MG TABLET.DR. PO SCH (06:35)
[2018-11-26 07:00] VITALS: BP 159/99
[2018-11-26 07:34] LABS: BARBITURATES NEG (NEG); BENZODIAZEPINES NEG (NEG); CANNABINOIDS POS (NEG); COCAINE NEG (NEG); METHADONE NEG (NEG); OPIATES NEG (NEG); PHENCYCLIDINE NEG (NEG)
[2018-11-26 07:36] LABS: AMPHETAMINE/METHAMPHETAMINE NEG (NEG)
--- NOTE | 2018-11-26 07:51 | RAD ---
MRI Brain with and without contrast History: Abnormal CT, concern for multiple sclerosis Technique: Multiplanar, multi sequential pre and postcontrast MR imaging was performed of the brain. Comparison: None Findings: There is some motion degradation. There is no evidence of recent infarct. There is no midline shift or extra-axial fluid collection, nodular parenchymal or leptomeningeal enhancement. There is multifocal moderate to severe T2 and FLAIR hyperintense signal abnormality of the supratentorial parenchyma bilaterally, some foci which have a perpendicular orientation relative to the lateral ventricles. There is some involvement of the basal ganglia greater on the left. Ventricles, sulci, cisterns are within normal limits in size and configuration. There is no significant hemosiderin deposition of the brain parenchyma. Right vertebral artery flow-void is not seen and likely aplastic. There is severe left maxillary sinus mucosal thickening, also more central mucus and also probable small air-fluid level. There is mild to moderate patchy fluid of the right mastoid air cells greater posteriorly, minimally on the left. Cerebellar tonsils are normal in location. There is preserved marrow signal of the clivus. There is no abnormality of pineal gland or pituitary gland. Impression: 1. There is no evidence of recent infarct or abnormal intracranial enhancement. There is multifocal moderate to severe T2 and FLAIR hyperintense signal abnormality of the supratentorial parenchyma bilaterally. Findings are nonspecific. While findings could be due to chronic microvascular ischemic disease especially if risk factors such as hypertension or diabetes, sequela of an inflammatory demyelinating disease is in the differential considerations. 2. There is severe left maxillary sinus mucosal thickening also with internal mucous and possible small FLAIR air-fluid level which could be seen with acute sinusitis. There is some fluid in the mastoid air cells greater on the right. Electronically signed by: Shaq Parra MD (11/26/2018 7:48 AM) [email or web address]
--- NOTE | 2018-11-26 08:01 | RAD ---
MRI Cervical Spine with and without contrast History: Concern for multiple sclerosis, recent headache and fever Technique: Multiplanar, multi sequential pre and postcontrast MR imaging was performed of the cervical spine. Comparison: None Findings: There is motion degradation even for repeated images. Cervical cord caliber is within normal limits without expansile signal abnormality, limited evaluation for subtle signal change due to motion artifact. There is no enhancement of the cervical cord or in the intervertebral disc spaces. Cervical vertebral body stature is maintained. AP alignment is within normal limits. There is moderate degenerative disc disease C5-6, minimally at C7-T1. C2-C3: Spinal canal and neural foramina are adequate. C3-C4: Spinal canal and neural foramina are adequate. C4-C5: Spinal canal and neural foramina are adequate. There is bilateral facet hypertrophic change. C5-C6: There is a broad disc osteophyte complex, possible superimposed protrusion or extrusion in the far left lateral recess although otherwise difficult to characterize given significant motion. Central canal is likely narrowed to about 8 mm with a greater degree of left lateral recess stenosis. There is left uncovertebral degenerative change. There is bilateral facet hypertrophic change. There is likely fairly severe narrowing of the left neural foramen, likely at least moderate narrowing on the right. C6-C7: There is shallow protrusion eccentric to the left lateral recess. Central canal is likely minimally narrowed to about 9 to 10 mm although poorly characterized due to motion. There is bilateral facet hypertrophic change. Neural foramina are overall adequate. C7-T1: There is probable shallow posterior protrusion, central canal likely borderline about 10 mm although poorly characterized. There is uncovertebral degenerative change greater on the right. There is severe narrowing of the right neural foramen, probable minimal narrowing on the left. Impression: 1. There is significant motion degradation. There is no expansile cervical cord signal abnormality, limited evaluation for more subtle signal change due to motion. There is no enhancement of the cervical cord. 2. There is likely mild spinal stenosis greatest at C5-C6 and to lesser degree at C6-7, likely narrowing of the far left lateral recess C5-6. 3. There is multilevel facet and uncovertebral degenerative change, suspected severe narrowing of the left C5-6 and right C7-T1 neural foramina, lesser degree of narrowing on the right at C5-6. 4. There is moderate degenerative disc disease C5-6, also mild spondylosis at this level. Electronically signed by: Shaq Parra MD (11/26/2018 7:59 AM) [email or web address]
[2018-11-26] MEDS: amLODIPine BESYLATE 10 MG TABLET PO SCH (08:10)
[2018-11-26] MEDS: LOSARTAN POTASSIUM 50 MG TABLET. PO SCH (08:11)
[2018-11-26] MEDS: DOXYCYCLINE HYCLATE 100 MG TABLET PO SCH ×2 (08:11→21:10)
--- NOTE | 2018-11-26 08:15 | NUR ---
pt leaving for LP at this time
--- NOTE | 2018-11-26 08:33 | PDOC ---
PROGRESS NOTES Chief Complaint Chief Complaint A/P: Chest discomfort - is epigastric discomfort and weakness more than pain. Negative initial EKG - NSR with slight left axis, no TWI or ST segment changes and troponin negative. No abnormal telemetry for the past 14 hours Bilateral leg weakness - with right arm weakness, fecal and urinary incontinence and left visual problems with CT findings concerning for possible lesions I am concerned this may be a presentation of MS. Will get MRI brain and c-spine and consult neuro. May need oligoclonal bands, LP checked as well. I have d/w him and his . 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 Will hold off on steroids and defer to neuro FEN - General diet PPX - SCDs FULL CODE Inpatient for LE weakness, needs w/u for MS, will d/w neurology History of Present Illness History of Present Illness Patient is a 52 year old male w/ PMHx smoker, obesity, HTN, HLD, KING on CPAP, left acquired hearing loss who presents with multiple complaints. His initial primary chief complaint was that of some chest discomfort described as a tightness and aching across the front of his chest he had a driving to work and also driving home he says it is worse when he coughs he is mostly a dry cough occasional yellow sputum in addition he has a headache he says he has had a headache for the last 24 hours front of the head feels like pressure he feels like his sinuses are clogged up. In addition he just feels weak overall he felt like both of his legs were pretty weak. He was hard for him to get around when he came home from work he just laid down she did not want to walk anymore. He notes that sporadically over the past couple of weeks his right arm has given out on him while at work. He also notes over the past 6 months he has been having small urinary incontinence and has had nocturnal enuresis x1 as well as a couple of small episodes of fecal incontinence. He also notes when he moves his eyes left he has been told he turns his head, but he does not note this until forced, then develops double vision and visual straining. On further review he notes intermittent difficulties swallowing and has been told at times that he mumbles though he feels he does not actually mumble. He does report a prior history of may be is some strokelike symptoms about 25 years ago. He says that he woke up in 1989 and he could not move his left side but he got up and went to work anyway and it gradually went away. In ED had EKG with slight left axis deviation, otherwise NSR. Troponin negative. CT head showed extensive cerebral frontal and parietal lobe white matter hypoattenuation could represent advanced changes of chronic microvascular ischemic disease or changes of extensive inflammatory white matter demyelination such as from multiple sclerosis and a 2 cm wedge-shaped chronic right frontal infarct. He was not aware of any prior abnormal head imaging. MRI completed 11/25/18 in the evening with possibility of supratentorial demyelinating inflammatory disease vs chronic changes found. No infarct Currently not having any numbness tingling or asymmetric weakness. He wishes to return to work and go home. No CP or SOB. Vitals Vitals Vital Signs Date Time Temp Pulse Resp B/P (MAP) Pulse Ox O2 Delivery O2 Flow Rate FiO2 11/26/18 08:11 65 159/99 11/26/18 07:00 98.2 18 93 Room Air 98.2 Physical Exam General: Alert, Oriented X3, Cooperative, No acute distress Heart: Regular rate, Normal S1, Normal S2 Lungs: Clear Abdomen: Normal bowel sounds, Soft, No tenderness, No hepatosplenomegaly, No masses Extremities: No clubbing, No cyanosis, No edema, Normal pulses, No tenderness/swelling Skin: No rashes, No breakdown, No significant lesion Labs LABS Laboratory Tests Test 11/25/18 12:40 11/25/18 19:45 11/26/18 07:00 Troponin I Quantitative 0.022 ng/mL (0.000-0.055) Prothrombin Time 12.4 SEC (11.7-14.0) Prothromb Time International Ratio 1.0 (0.8-1.1) Urine Opiates Screen Neg (NEG) Urine Methadone Screen Neg (NEG) Urine Barbiturates Neg (NEG) Urine Phencyclidine Screen Neg (NEG) Urine Amphetamine/Methamphetamine Neg (NEG) Urine Benzodiazepines Screen Neg (NEG) Urine Cocaine Screen Neg (NEG) Urine Cannabinoids Screen Pos (NEG) Urine Ethyl Alcohol Neg (NEG) Comment Review of Relevant I have reviewed the following items vahid (where applicable) has been applied. Labs Laboratory Tests Test 11/24/18 18:22 11/24/18 19:02 11/25/18 01:20 11/25/18 04:20 White Blood Count 7.8 x10^3/uL (4.0-11.0) Red Blood Count 4.96 x10^6/uL (4.30-5.70) Hemoglobin 14.4 g/dL (13.0-17.5) Hematocrit 42.7 % (39.0-53.0) Mean Corpuscular Volume 86 fL (79-100) Mean Corpuscular Hemoglobin 29 pg (25-35) Mean Corpuscular Hemoglobin Concent 34 g/dL (31-37) Red Cell Distribution Width 14.2 % (11.5-14.5) Platelet Count 192 x10^3/uL (140-400) Neutrophils (%) (Auto) 60 % (31-73) Lymphocytes (%) (Auto) 25 % (24-48) Monocytes (%) (Auto) 14 % (0-9) Eosinophils (%) (Auto) 1 % (0-3) Basophils (%) (Auto) 0 % (0-3) Neutrophils # (Auto) 4.7 x10^3uL (1.8-7.7) Lymphocytes # (Auto) 1.9 x10^3/uL (1.0-4.8) Monocytes # (Auto) 1.1 x10^3/uL (0.0-1.1) Eosinophils # (Auto) 0.1 x10^3/uL (0.0-0.7) Basophils # (Auto) 0.0 x10^3/uL (0.0-0.2) Sodium Level 140 mmol/L (136-145) 142 mmol/L (136-145) Potassium Level 3.0 mmol/L (3.5-5.1) 3.3 mmol/L (3.5-5.1) Chloride Level 102 mmol/L (98-107) 103 mmol/L (98-107) Carbon Dioxide Level 28 mmol/L (21-32) 25 mmol/L (21-32) Anion Gap 10 (6-14) 14 (6-14) Blood Urea Nitrogen 12 mg/dL (8-26) 11 mg/dL (8-26) Creatinine 1.1 mg/dL (0.7-1.3) 1.0 mg/dL (0.7-1.3) Estimated GFR (Cockcroft-Gault) 70.0 78.2 BUN/Creatinine Ratio 11 (6-20) Glucose Level 107 mg/dL (70-99) 112 mg/dL (70-99) Calcium Level 9.0 mg/dL (8.5-10.1) 8.6 mg/dL (8.5-10.1) Total Bilirubin 0.3 mg/dL (0.2-1.0) Aspartate Amino Transf (AST/SGOT) 29 U/L (15-37) Alanine Aminotransferase (ALT/SGPT) 49 U/L (16-63) Alkaline Phosphatase 108 U/L (46-116) Creatine Kinase 145 U/L (39-308) Troponin I Quantitative < 0.017 ng/mL (0.000-0.055) 0.021 ng/mL (0.000-0.055) 0.030 ng/mL (0.000-0.055) Total Protein 7.4 g/dL (6.4-8.2) Albumin 3.8 g/dL (3.4-5.0) Albumin/Globulin Ratio 1.1 (1.0-1.7) Lipase 176 U/L (73-393) Urine Collection Type Unknown Urine Color Yellow Urine Clarity Turbid Urine pH 7.0 Urine Specific [place] 1.015 Urine Protein Negative mg/dL (NEG-TRACE) Urine Glucose (UA) Negative mg/dL (NEG) Urine Ketones (Stick) Negative mg/dL (NEG) Urine Blood Small (NEG) Urine Nitrite Negative (NEG) Urine Bilirubin Negative (NEG) Urine Urobilinogen Dipstick 0.2 mg/dL (0.2 mg/dL) Urine Leukocyte Esterase Negative (NEG) Urine RBC 1-2 /HPF (0-2) Urine WBC 0 /HPF (0-4) Urine Amorphous Sediment Present /HPF Urine Bacteria 0 /HPF (0-FEW) Lactic Acid Level 0.7 mmol/L (0.4-2.0) Magnesium Level 1.9 mg/dL (1.8-2.4) Vitamin B12 Level 554 pg/mL (247-911) Thyroid Stimulating Hormone (TSH) 4.792 uIU/mL (0.358-3.74) Test 11/25/18 12:40 11/25/18 19:45 11/26/18 07:00 Troponin I Quantitative 0.022 ng/mL (0.000-0.055) Prothrombin Time 12.4 SEC (11.7-14.0) Prothromb Time International Ratio 1.0 (0.8-1.1) Urine Opiates Screen Neg (NEG) Urine Methadone Screen Neg (NEG) Urine Barbiturates Neg (NEG) Urine Phencyclidine Screen Neg (NEG) Urine Amphetamine/Methamphetamine Neg (NEG) Urine Benzodiazepines Screen Neg (NEG) Urine Cocaine Screen Neg (NEG) Urine Cannabinoids Screen Pos (NEG) Urine Ethyl Alcohol Neg (NEG) Laboratory Tests Test 11/25/18 12:40 11/25/18 19:45 11/26/18 07:00 Troponin I Quantitative 0.022 ng/mL (0.000-0.055) Prothrombin Time 12.4 SEC (11.7-14.0) Prothromb Time International Ratio 1.0 (0.8-1.1) Urine Opiates Screen Neg (NEG) Urine Methadone Screen Neg (NEG) Urine Barbiturates Neg (NEG) Urine Phencyclidine Screen Neg (NEG) Urine Amphetamine/Methamphetamine Neg (NEG) Urine Benzodiazepines Screen Neg (NEG) Urine Cocaine Screen Neg (NEG) Urine Cannabinoids Screen Pos (NEG) Urine Ethyl Alcohol Neg (NEG) Microbiology 11/25/18 Blood Culture - Preliminary, Resulted NO GROWTH AFTER 1 DAY Medications Current Medications Acetaminophen (Tylenol) 1,000 mg 1X ONCE PO Last administered on 11/24/18at 19:00; Start 11/24/18 at 19:00; Stop 11/24/18 at 19:01; Status DC Sodium Chloride 1,000 ml @ 1,000 mls/hr 1X ONCE IV Last administered on 11/24/18at 19:01; Start 11/24/18 at 19:00; Stop 11/24/18 at 19:59; Status DC Multi-Ingredient Mouthwash/Gargle (Gi Cocktail) 20 ml 1X ONCE SWSW Last adm inistered on 11/24/18at 19:59; Start 11/24/18 at 19:45; Stop 11/24/18 at 19:46; Status DC Potassium Chloride (KCl Oral Soln) 40 meq 1X ONCE PO Last administered on 11/24/18 19:59; Start 11/24/18 at 20:00; Stop 11/24/18 at 20:01; Status DC Aspirin (Children'S Aspirin) 324 mg 1X ONCE PO Last administered on 11/24/18 21:28; Start 11/24/18 at 21:30; Stop 11/24/18 at 21:31; Status DC Morphine Sulfate (Morphine Sulfate) 4 mg PRN Q2HR PRN IV SEVERE PAIN; Start 11/24/18 at 22:30; Stop 11/25/18 at 22:29; Status DC Sodium Chloride 1,000 ml @ 75 mls/hr [id number] IV Last administered on 11/24/18 22:39; Start 11/24/18 at 22:30; Stop 11/25/18 at 10:45; Status DC Doxycycline Hyclate 100 mg/ Dextrose 100 ml @ 50 mls/hr 1X ONCE IV Last administered on 11/24/18 22:38; Start 11/24/18 at 23:00; Stop 11/25/18 at 00:59; Status DC Amlodipine Besylate (Norvasc) 10 mg DAILY PO Last administered on 11/26/18 08:10; Start 11/25/18 at 09:30 Losartan Potassium (Cozaar) 100 mg DAILY PO Last administered on 11/26/18 08: 11; Start 11/25/18 at 09:30 Pantoprazole Sodium (Protonix) 40 mg DAILYAC PO Last administered on 11/26/18 06:35; Start 11/26/18 at 07:30 Atorvastatin Calcium (Lipitor) 20 mg QHS PO Last administered on 11/25/18 21:59; Start 11/25/18 at 21:00 Potassium Chloride (Klor-Con) 40 meq 1X ONCE PO Last administered on 11/25/18 09:23; Start 11/25/18 at 09:30; Stop 11/25/18 at 09:31; Status DC Magnesium Sulfate/ Dextrose 100 ml @ 100 mls/hr 1X ONCE IV Last administered on 11/25/18 09:20; Start 11/25/18 at 09:30; Stop 11/25/18 at 10:29; Status DC Acetaminophen (Tylenol) 650 mg PRN Q6HRS PRN PO HEADACHE/TEMP Last administered on 11/25/18at 10:16; Start 11/25/18 at 10:15 Gadoterate Meglumine (Dotarem) 10 ml 1X ONCE IVP Last administered on 11/25/18at 16:00; Start 11/25/18 at 16:00; Stop 11/25/18 at 16:25; Status DC Gadoterate Meglumine (Dotarem) 10 ml 1X ONCE IVP Last administered on 11/25/18at 16:00; Start 11/25/18 at 16:00; Stop 11/25/18 at 16:25; Status DC Doxycycline Hyclate (Vibra-Tab) 100 mg BID PO Last administered on 11/26/18at 08:11; Start 11/25/18 at 18:00 Active Scripts Active Keflex (Cephalexin) 500 Mg Capsule 1 Cap PO TID Reported Nasal Decongestant (Oxymetazoline Hcl) 30 Ml [place] 30 Ml NS HS Crestor (Rosuvastatin Calcium) 5 Mg Tablet 5 Mg PO HS Omeprazole 40 Mg Capsule.dr 1 Cap PO DAILY Losartan Potassium 100 Mg Tablet 100 Mg PO DAILY Amlodipine Besylate 10 Mg Tablet 10 Mg PO DAILY Vitals/I & O Vital Sign - Last 24 Hours 11/25/18 11/25/18 11/25/18 11/25/18 09:21 09:22 11:00 11:19 Temp 98.6 98.6 Pulse 80 80 80 Resp 18 B/P (MAP) 180/89 180/89 175/92 (119) 165/79 (107) Pulse Ox 92 O2 Delivery Room Air 11/25/18 11/25/18 11/25/18 11/25/18 12:46 17:53 19:00 20:00 Temp 98.4 98.3 98.5 98.4 98.3 98.5 Pulse 78 73 78 Resp 17 18 B/P (MAP) 149/82 (104) 144/98 (113) 152/94 (113) Pulse Ox 95 91 O2 Delivery Room Air Room Air Room Air Room Air 11/25/18 11/26/18 11/26/18 11/26/18 23:00 03:00 07:00 08:10 Temp 98.0 98.2 98.2 98.0 98.2 98.2 Pulse 71 68 65 65 Resp 18 18 18 B/P (MAP) 137/82 (100) 142/91 (108) 159/99 (119) 159/99 Pulse Ox 98 94 93 O2 Delivery BiPAP/CPAP BiPAP/CPAP Room Air 11/26/18 08:11 Pulse 65 B/P (MAP) 159/99 Intake and Output 11/25/18 11/25/18 11/26/18 14:59 22:59 06:59 Intake Total 1407.46 ml 390 ml Output Total 650 ml Balance 757.46 ml 390 ml Images MRI Brain - 1. There is no evidence of recent infarct or abnormal intracranial enhancement. There is multifocal moderate to severe T2 and FLAIR hyperintense signal abnormality of the supratentorial parenchyma bilaterally. Findings are nonspecific. While findings could be due to chronic microvascular ischemic disease especially if risk factors such as hypertension or diabetes, sequela of an inflammatory demyelinating disease is in the differential considerations. 2. There is severe left maxillary sinus mucosal thickening also with internal mucous and possible small FLAIR air-fluid level which could be seen with acute sinusitis. There is some fluid in the mastoid air cells greater on the right. SANDRITA MACKENZIE MD November 26, 2018 08:33
--- NOTE | 2018-11-26 08:57 | PDOC ---
Provider Note Provider Note The fluoro guided LP was performed without difficulty utilizing a 20g spinal needle. 10 cc of clear CSF was removed and sent to the lab for appropriate studies. The patient left the radiology department in good condition. ANDREEA HURTADO MD November 26, 2018 08:57
--- NOTE | 2018-11-26 09:17 | NUR ---
ADELA following for discharge planning. Discussed with RN, pt had a lumbar puncture - awaiting results. RN advised possibility of MS. SW will continue to follow for any discharge planning needs.
[2018-11-26 09:44] LABS: CSF PROTEIN 48.5 mg/dL (15.0-45.0)
--- NOTE | 2018-11-26 10:14 | RAD ---
Fluoroscopically guided lumbar puncture, 11/26/2018: HISTORY: Possible multiple sclerosis, headache, fever Under local anesthesia, aseptic good position and fluoroscopic guidance a lumbar puncture was performed at the upper L3 level utilizing a 20-gauge spinal needle. Good clear CSF flow was obtained. The opening pressure was measured at 17 cm of water. 10 cc of CSF was removed and sent to the lab for appropriate studies. The closing pressure was measured at 15 cm of water. 0.9 minutes of fluoroscopy time was utilized. One fluoroscopic spot image was recorded. The patient tolerated the procedure well and was returned to the floor in good condition. Electronically signed by: Ru Burk MD (11/26/2018 10:11 AM) [facility]
[2018-11-26 10:23] LABS: HEMOGLOBIN A1C 5.5 % (4.8-5.6)
[2018-11-26 10:25] LABS: CSF CLARITY CLEAR; CSF COLOR COLORLESS; CSF RBC COUNT 1 /cmm (Not Established); CSF WBC COUNT 1 /cmm (Not Established)
[2018-11-26 11:00] VITALS: BP 137/68
[2018-11-26 11:25] LABS: FREE T4 1.01 ng/dL (0.76-1.46)
--- NOTE | 2018-11-26 13:45 | PDOC ---
PROGRESS NOTES Assessment Assessment Headaches. Vision disturbances. LE weakness and numbness x 1 day before admission. Right UE numbness several months ago, resolved. MS? HTN. HLD. GERD. Acute sinusitis. Smoking x 40 years. RECOMMENDATIONS/PLAN: LP performed on 11/26/18, FU CSF reports. Smoking cessation. Drug abstinence. Discussed with him and his in all detail at bedside on 11/26/18. Brain MRI w/wo contrast on 11/25/18: Significant small vessel disease likely. Demyelination on differential. No intracranial enhancement. C-spine MRI w/wo contrast on 11/25/18: No cord abnormality found. HISTORY OF THE PRESENT ILLNESS: This is a 52 -year-old male with longstanding history of smoking 1 pack a day for over 40 years and PMH of HTN, HLD, KING on CPAP, left acquired hearing loss. His initial primary chief complaint was that of some chest discomfort described as a tightness and aching across the front of his chest he had a driving to work and also driving home he says it is worse when he coughs he is mostly a dry cough occasional yellow sputum in addition he has a headache he says he has had a headache for the last 24 hours front of the head feels like pressure he feels like his sinuses are clogged up. He stated he did not feeling well but he had difficulties describe his feeling. He stated he had weakness in his bilateral LE for 1-2 days, but not urinary of bowel dysfunction. He said he had symptoms of numbness in his UE especially his right UE several months ago. His CT head showed extensive cerebral frontal and parietal lobe white matter hypoattenuation could represent advanced changes of chronic microvascular ischemic disease or changes of extensive inflammatory white matter demyelination such as from multiple sclerosis and a 2 cm wedge- shaped chronic right frontal infarct. He was not aware of any prior abnormal head imaging. Past Medical History Cardiovascular: HTN Pulmonary: Other (KING) CENTRAL NERVOUS SYSTEM: TIA GI: No pertinent hx Heme/Onc: No pertinent hx Hepatobiliary: No pertinent hx Psych: No pertinent hx Musculoskeletal: Weakness Rheumatologic: No pertinent hx Infectious disease: No pertinent hx ENT: No pertinent hx Renal/: No pertinent hx Endocrine: No pertinent hx Dermatology: No pertinent hx Past Surgical History No pertinent history Family History Diabetes (Mother), High Cholestrol, Hypertension Social History Smoke: 1 pack per day ALCOHOL: rare Drugs: Marijuana Allergies Coded Allergies: hydrocodone (Verified Allergy, Intermediate, Itching, 11/10/17) MEDICATIONS: Refer to [facility] REVIEW OF SYSTEMS: Constitutional: Obesity. Head: No recent traumatic brain or head injury. Skin: No edema, or rash. Ear: No infection. Eyes: No vision loss or color blindness. Nose: No bleeding or purulent discharges. Hearing: No hearing decrease. Neck: No injury. Cardiac: HTN, HLD. Pulmonary: Smoking. GI: GERD. Urinary/genital: No dysuria, incontinence, urinary retention. Endocrinologic: Obesity. Skeletomuscular: No muscular atrophy. Neurological: see HP. Psychiatric: Denies drug use/abuse. Otherwise, not [id number] review of systems. PHYSICAL EXAMINATION: General appearance is in subacute distress. HEENT: Normocephalic and nontraumatic. Eyes, nose, ears, and throat are unremarkable. Neck is supple. No lymphadenopathy. No crepitus. Cardiovascular: S1, S2, regular rate and rhythm. Pulmonary: Clear to auscultation bilaterally. Abdomen: Bowel sounds are positive. Abdomen is soft, nontender, and nondistended. Extremities: No rash, lesions, or edema. No restriction of range of motion NEUROLOGICAL EXAMINATION: Alert Oriented to time, place and person. PERRL. EOMI. CN: no focal findings. Muscle tone: within normal. Muscle strength: 5 DTR: 2 Plantar reflex: Flexor response bilaterally Gait: not examined in bed. Sensory exam: no abnormal findings. No cerebellar signs elicited. F-T-N test fine. Objective Objective Vital Signs Date Time Temp Pulse Resp B/P (MAP) Pulse Ox O2 Delivery O2 Flow Rate FiO2 11/26/18 11:00 97.7 69 18 137/68 (91) 95 Room Air 97.7 Intake and Output 11/26/18 06:59 Intake Total 1797.46 ml Output Total 650 ml Balance 1147.46 ml Intake Oral 390 ml IV Total 807.46 ml Blood Product IV Normal Saline Flush 600 ml Output Urine Total 650 ml # Voids 4 Vitals Signs Vitals VS - Last 72 Hours, by Label Date Time Temp Pulse Resp B/P (MAP) Pulse Ox O2 Delivery O2 Flow Rate FiO2 11/26/18 11:00 97.7 69 18 137/68 (91) 95 Room Air 97.7 11/26/18 08:11 65 159/99 11/26/18 08:10 65 159/99 11/26/18 08:00 Room Air 11/26/18 07:00 98.2 65 18 159/99 (119) 93 Room Air 98.2 11/26/18 03:00 98.2 68 18 142/91 (108) 94 BiPAP/CPAP 98.2 11/25/18 23:00 98.0 71 18 137/82 (100) 98 BiPAP/CPAP 98.0 11/25/18 20:00 Room Air 11/25/18 19:00 98.5 78 18 152/94 (113) 91 Room Air 98.5 11/25/18 17:53 98.3 73 17 144/98 (113) 95 Room Air 98.3 11/25/18 12:46 98.4 78 149/82 (104) Room Air 98.4 11/25/18 11:19 165/79 (107) 11/25/18 11:00 98.6 80 18 175/92 (119) 92 Room Air 98.6 11/25/18 09:22 80 180/89 11/25/18 09:21 80 180/89 11/25/18 08:15 Room Air 11/25/18 07:45 180/89 (119) 11/25/18 07:00 98.2 80 18 177/88 (117) 93 Room Air 98.2 Laboratory Laboratory Laboratory Tests Test 11/25/18 19:45 11/26/18 07:00 11/26/18 09:00 Prothrombin Time 12.4 SEC (11.7-14.0) Prothromb Time International Ratio 1.0 (0.8-1.1) Urine Opiates Screen Neg (NEG) Urine Methadone Screen Neg (NEG) Urine Barbiturates Neg (NEG) Urine Phencyclidine Screen Neg (NEG) Urine Amphetamine/Methamphetamine Neg (NEG) Urine Benzodiazepines Screen Neg (NEG) Urine Cocaine Screen Neg (NEG) Urine Cannabinoids Screen Pos (NEG) Urine Ethyl Alcohol Neg (NEG) CSF Tube Number 4 CSF Volume 6.6 CSF Color Colorless CSF Clarity Clear CSF WBC 1 /cmm (Not Established) CSF RBC 1 /cmm (Not Established) CSF Glucose 61 mg/dL (37-70) CSF Total Protein 48.5 mg/dL (15.0-45.0) Microbiology 11/25/18 Blood Culture - Preliminary, Resulted NO GROWTH AFTER 1 DAY 11/26/18 CSF Gram Stain - Final, Complete Medication Medications Current Medications Atorvastatin Calcium (Lipitor) 20 mg QHS PO Last administered on 11/25/18at 21:59; Start 11/25/18 at 21:00 Doxycycline Hyclate (Vibra-Tab) 100 mg BID PO Last administered on 11/26/18at 08:11; Start 11/25/18 at 18:00 Gadoterate Meglumine (Dotarem) 10 ml 1X ONCE IVP Last administered on 11/25/18at 16:00; Start 11/25/18 at 16:00; Stop 11/25/18 at 16:25; Status DC Gadoterate Meglumine (Dotarem) 10 ml 1X ONCE IVP Last administered on 11/25/18at 16:00; Start 11/25/18 at 16:00; Stop 11/25/18 at 16:25; Status DC Lactobacillus Rhamnosus (Culturelle) 1 cap BID PO ; Start 11/26/18 at 21:00 Pantoprazole Sodium (Protonix) 40 mg DAILYAC PO Last administered on 11/26/18at 06:35; Start 11/26/18 at 07:30 Comment Review of Relevant I have reviewed the following items vahid (where applicable) has been applied. JUAN JOSE FITZGERALD MD November 26, 2018 13:45
[2018-11-26 15:00] VITALS: BP 141/77
[2018-11-26 19:00] VITALS: BP 164/95
[2018-11-26] MEDS: ATORVASTATIN CALCIUM 20 MG TABLET PO SCH (21:10)
[2018-11-26] MEDS: LACTOBACILLUS RHAMNOSUS GG 1 CAPSULE. PO SCH (21:10)
[2018-11-26] MEDS: ACETAMINOPHEN 325 MG TABLET. PO PRN (21:34)
[2018-11-26 23:00] VITALS: BP 160/92
[2018-11-27 03:00] VITALS: BP 162/87
[2018-11-27] MEDS: PANTOPRAZOLE 40 MG TABLET.DR. PO SCH (06:04)
[2018-11-27 07:00] VITALS: BP 135/92
[2018-11-27] MEDS: DOXYCYCLINE HYCLATE 100 MG TABLET PO SCH (08:44)
[2018-11-27] MEDS: LACTOBACILLUS RHAMNOSUS GG 1 CAPSULE. PO SCH (08:44)
[2018-11-27] MEDS: amLODIPine BESYLATE 10 MG TABLET PO SCH (08:44)
[2018-11-27 08:45] VITALS: BP 135/92
[2018-11-27] MEDS: LOSARTAN POTASSIUM 50 MG TABLET. PO SCH (08:45)
--- NOTE | 2018-11-27 09:03 | PDOC ---
PROGRESS NOTES Chief Complaint Chief Complaint A/P: Chest discomfort - is epigastric discomfort and weakness more than pain. Negative initial EKG - NSR with slight left axis, no TWI or ST segment changes and troponin negative. No abnormal telemetry for the past 14 hours Bilateral leg weakness - with right arm weakness, fecal and urinary incontinence and left visual problems with CT findings concerning for possible lesions I am concerned this may be a presentation of MS. Will get MRI brain and c-spine and consult neuro. May need oligoclonal bands, LP checked as well. I have d/w him and his . 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 Will hold off on steroids and defer to neuro FEN - General diet PPX - SCDs FULL CODE Inpatient for LE weakness, needs w/u for MS, will d/w neurology History of Present Illness History of Present Illness Patient is a 52 year old male w/ PMHx smoker, obesity, HTN, HLD, KING on CPAP, left acquired hearing loss who presents with multiple complaints. His initial primary chief complaint was that of some chest discomfort described as a tightness and aching across the front of his chest he had a driving to work and also driving home he says it is worse when he coughs he is mostly a dry cough occasional yellow sputum in addition he has a headache he says he has had a headache for the last 24 hours front of the head feels like pressure he feels like his sinuses are clogged up. In addition he just feels weak overall he felt like both of his legs were pretty weak. He was hard for him to get around when he came home from work he just laid down she did not want to walk anymore. He notes that sporadically over the past couple of weeks his right arm has given out on him while at work. He also notes over the past 6 months he has been having small urinary incontinence and has had nocturnal enuresis x1 as well as a couple of small episodes of fecal incontinence. He also notes when he moves his eyes left he has been told he turns his head, but he does not note this until forced, then develops double vision and visual straining. On further review he notes intermittent difficulties swallowing and has been told at times that he mumbles though he feels he does not actually mumble. He does report a prior history of may be is some strokelike symptoms about 25 years ago. He says that he woke up in 1989 and he could not move his left side but he got up and went to work anyway and it gradually went away. In ED had EKG with slight left axis deviation, otherwise NSR. Troponin negative. CT head showed extensive cerebral frontal and parietal lobe white matter hypoattenuation could represent advanced changes of chronic microvascular ischemic disease or changes of extensive inflammatory white matter demyelination such as from multiple sclerosis and a 2 cm wedge-shaped chronic right frontal infarct. He was not aware of any prior abnormal head imaging. MRI completed 11/25/18 in the evening with possibility of supratentorial demyelinating inflammatory disease vs chronic changes found. No infarct. Slightly elevated CSF protein 48.5. Seen by neurology with prior demyelination, not necessarily active disease. Needs neuro follow up. Currently not having any numbness tingling or asymmetric weakness. He wishes to return to work and go home. No CP or SOB. Plan: D/c to treat sinusitis Vitals Vitals Vital Signs Date Time Temp Pulse Resp B/P (MAP) Pulse Ox O2 Delivery O2 Flow Rate FiO2 11/27/18 08:45 66 135/92 11/27/18 07:48 Room Air 11/27/18 07:00 97.9 16 95 97.9 Physical Exam General: Alert, Oriented X3, Cooperative, No acute distress Heart: Regular rate, Normal S1, Normal S2 Lungs: Clear Abdomen: Normal bowel sounds, Soft, No tenderness, No hepatosplenomegaly, No masses Extremities: No clubbing, No cyanosis, No edema, Normal pulses, No tenderness/swelling Skin: No rashes, No breakdown, No significant lesion Comment Review of Relevant I have reviewed the following items vahid (where applicable) has been applied. Labs Laboratory Tests Test 11/25/18 12:40 11/25/18 19:45 11/26/18 07:00 11/26/18 09:00 Troponin I Quantitative 0.022 ng/mL (0.000-0.055) Free Thyroxine 1.01 ng/dL (0.76-1.46) Free Triiodothyronine (T3) pg/mL 2.75 pg/mL (2.18-3.98) Prothrombin Time 12.4 SEC (11.7-14.0) Prothromb Time International Ratio 1.0 (0.8-1.1) Urine Opiates Screen Neg (NEG) Urine Methadone Screen Neg (NEG) Urine Barbiturates Neg (NEG) Urine Phencyclidine Screen Neg (NEG) Urine Amphetamine/Methamphetamine Neg (NEG) Urine Benzodiazepines Screen Neg (NEG) Urine Cocaine Screen Neg (NEG) Urine Cannabinoids Screen Pos (NEG) Urine Ethyl Alcohol Neg (NEG) CSF Tube Number 4 CSF Volume 6.6 CSF Color Colorless CSF Clarity Clear CSF WBC 1 /cmm (Not Established) CSF RBC 1 /cmm (Not Established) CSF Glucose 61 mg/dL (37-70) CSF Total Protein 48.5 mg/dL (15.0-45.0) Microbiology 11/25/18 Blood Culture - Preliminary, Resulted NO GROWTH AFTER 2 DAYS 11/26/18 CSF Gram Stain - Final, Complete Medications Current Medications Acetaminophen (Tylenol) 1,000 mg 1X ONCE PO Last administered on 11/24/18at 19:00; Start 11/24/18 at 19:00; Stop 11/24/18 at 19:01; Status DC Sodium Chloride 1,000 ml @ 1,000 mls/hr 1X ONCE IV Last administered on 11/24/18at 19:01; Start 11/24/18 at 19:00; Stop 11/24/18 at 19:59; Status DC Multi-Ingredient Mouthwash/Gargle (Gi Cocktail) 20 ml 1X ONCE SWSW Last administered on 11/24/18at 19:59; Start 11/24/18 at 19:45; Stop 11/24/18 at 19:46; Status DC Potassium Chloride (KCl Oral Soln) 40 meq 1X ONCE PO Last administered on 11/24/18at 19:59; Start 11/24/18 at 20:00; Stop 11/24/18 at 20:01; Status DC Aspirin (Children'S Aspirin) 324 mg 1X ONCE PO Last administered on 11/24/18at 21:28; Start 11/24/18 at 21:30; Stop 11/24/18 at 21:31; Status DC Morphine Sulfate (Morphine Sulfate) 4 mg PRN Q2HR PRN IV SEVERE PAIN; Start 11/24/18 at 22:30; Stop 11/25/18 at 22:29; Status DC Sodium Chloride 1,000 ml @ 75 mls/hr [id number] IV Last administered on 11/24/18 22:39; Start 11/24/18 at 22:30; Stop 11/25/18 at 10:45; Status DC Doxycycline Hyclate 100 mg/ Dextrose 100 ml @ 50 mls/hr 1X ONCE IV Last administered on 11/24/18 22:38; Start 11/24/18 at 23:00; Stop 11/25/18 at 00:59; Status DC Amlodipine Besylate (Norvasc) 10 mg DAILY PO Last administered on 11/27/18 08:44; Start 11/25/18 at 09:30 Losartan Potassium (Cozaar) 100 mg DAILY PO Last administered on 11/27/18 08:45; Start 11/25/18 at 09:30 Pantoprazole Sodium (Protonix) 40 mg DAILYAC PO Last administered on 11/27/18 06:04; Start 11/26/18 at 07:30 Atorvastatin Calcium (Lipitor) 20 mg QHS PO Last administered on 11/26/18 21:10; Start 11/25/18 at 21:00 Potassium Chloride (Klor-Con) 40 meq 1X ONCE PO Last administered on 11/25/18 09:23; Start 11/25/18 at 09:30; Stop 11/25/18 at 09:31; Status DC Magnesium Sulfate/ Dextrose 100 ml @ 100 mls/hr 1X ONCE IV Last administered on 11/25/18 09:20; Start 11/25/18 at 09:30; Stop 11/25/18 at 10:29; Status DC Acetaminophen (Tylenol) 650 mg PRN Q6HRS PRN PO HEADACHE/TEMP Last administered on 11/26/18 21:34; Start 11/25/18 at 10:15 Gadoterate Meglumine (Dotarem) 10 ml 1X ONCE IVP Last administered on 11/25/18 16:00; Start 11/25/18 at 16:00; Stop 11/25/18 at 16:25; Status DC Gadoterate Meglumine (Dotarem) 10 ml 1X ONCE IVP Last administered on 11/25/18at 16:00; Start 11/25/18 at 16:00; Stop 11/25/18 at 16:25; Status DC Doxycycline Hyclate (Vibra-Tab) 100 mg BID PO Last administered on 11/27/18at 08:44; Start 11/25/18 at 18:00 Lactobacillus Rhamnosus (Culturelle) 1 cap BID PO Last administered on 11/27/18at 08:44; Start 11/26/18 at 21:00 Active Scripts Active Keflex (Cephalexin) 500 Mg Capsule 1 Cap PO TID Reported Nasal Decongestant (Oxymetazoline Hcl) 30 Ml [place] 30 Ml NS HS Crestor (Rosuvastatin Calcium) 5 Mg Tablet 5 Mg PO HS Omeprazole 40 Mg Capsule.dr 1 Cap PO DAILY Losartan Potassium 100 Mg Tablet 100 Mg PO DAILY Amlodipine Besylate 10 Mg Tablet 10 Mg PO DAILY Vitals/I & O Vital Sign - Last 24 Hours 11/26/18 11/26/18 11/26/18 11/26/18 11:00 15:00 19:00 20:00 Temp 97.7 98.0 98.5 97.7 98.0 98.5 Pulse 69 69 59 Resp 18 20 18 B/P (MAP) 137/68 (91) 141/77 (98) 164/95 (118) Pulse Ox 95 95 96 O2 Delivery Room Air Room Air Room Air Room Air 11/26/18 11/27/18 11/27/18 11/27/18 23:00 03:00 07:00 07:48 Temp 97.7 98.0 97.9 97.7 98.0 97.9 Pulse 59 55 66 Resp 18 18 16 B/P (MAP) 160/92 (114) 162/87 (112) 135/92 (106) Pulse Ox 92 91 95 O2 Delivery Room Air Room Air Room Air Room Air 11/27/18 11/27/18 08:44 08:45 Pulse 66 66 B/P (MAP) 135/92 135/92 Intake and Output 11/26/18 11/26/18 11/27/18 15:00 23:00 07:00 Intake Total 360 ml 220 ml Balance 360 ml 220 ml SANDRITA MACKENZIE MD November 27, 2018 09:03
[2018-11-27 10:25] LABS: CALCIUM 9.7 mg/dL (8.5-10.1); GFR 78.2; POTASSIUM 3.6 mmol/L (3.5-5.1)
[2018-11-27] MEDS ORDERED: DOXY100T PO (10:49)
--- NOTE | 2018-11-27 10:55 | PDOC3 ---
Discharge Summary Visit Information Date of Admission: November 24, 2018 Date of Discharge: November 27, 2018 Admitting Diagnosis: Bilateral leg weakness Final Diagnosis Sinusitis Demyelinating disease of brain Brief Hospital Course Allergies Allergies Coded Allergies Type Severity Reaction Last Updated Verified hydrocodone Allergy Intermediate Itching 11/10/17 Yes Vital Signs Vital Signs Date Time Temp Pulse Resp B/P (MAP) Pulse Ox O2 Delivery O2 Flow Rate FiO2 11/27/18 08:45 66 135/92 11/27/18 07:48 Room Air 11/27/18 07:00 97.9 16 95 97.9 Lab Results Laboratory Tests Test 11/25/18 12:40 11/25/18 19:45 11/26/18 07:00 11/26/18 09:00 Troponin I Quantitative 0.022 ng/mL (0.000-0.055) Free Thyroxine 1.01 ng/dL (0.76-1.46) Free Triiodothyronine (T3) pg/mL 2.75 pg/mL (2.18-3.98) Prothrombin Time 12.4 SEC (11.7-14.0) Prothromb Time International Ratio 1.0 (0.8-1.1) Urine Opiates Screen Neg (NEG) Urine Methadone Screen Neg (NEG) Urine Barbiturates Neg (NEG) Urine Phencyclidine Screen Neg (NEG) Urine Amphetamine/Methamphetamine Neg (NEG) Urine Benzodiazepines Screen Neg (NEG) Urine Cocaine Screen Neg (NEG) Urine Cannabinoids Screen Pos (NEG) Urine Ethyl Alcohol Neg (NEG) CSF Tube Number 4 CSF Volume 6.6 CSF Color Colorless CSF Clarity Clear CSF WBC 1 /cmm (Not Established) CSF RBC 1 /cmm (Not Established) CSF Glucose 61 mg/dL (37-70) CSF Total Protein 48.5 mg/dL (15.0-45.0) Test 11/27/18 09:35 Sodium Level 142 mmol/L (136-145) Potassium Level 3.6 mmol/L (3.5-5.1) Chloride Level 104 mmol/L (98-107) Carbon Dioxide Level 27 mmol/L (21-32) Anion Gap 11 (6-14) Blood Urea Nitrogen 17 mg/dL (8-26) Creatinine 1.0 mg/dL (0.7-1.3) Estimated GFR (Cockcroft-Gault) 78.2 Glucose Level 110 mg/dL (70-99) Calcium Level 9.7 mg/dL (8.5-10.1) Magnesium Level 2.0 mg/dL (1.8-2.4) Laboratory Tests Test 11/27/18 09:35 Sodium Level 142 mmol/L (136-145) Potassium Level 3.6 mmol/L (3.5-5.1) Chloride Level 104 mmol/L (98-107) Carbon Dioxide Level 27 mmol/L (21-32) Anion Gap 11 (6-14) Blood Urea Nitrogen 17 mg/dL (8-26) Creatinine 1.0 mg/dL (0.7-1.3) Estimated GFR (Cockcroft-Gault) 78.2 Glucose Level 110 mg/dL (70-99) Calcium Level 9.7 mg/dL (8.5-10.1) Magnesium Level 2.0 mg/dL (1.8-2.4) Brief Hospital Course Patient is a 52 year old male w/ PMHx smoker, obesity, HTN, HLD, KING on CPAP, left acquired hearing loss who presents with multiple complaints. His initial primary chief complaint was that of some chest discomfort described as a tightness and aching across the front of his chest he had a driving to work and also driving home he says it is worse when he coughs he is mostly a dry cough occasional yellow sputum in addition he has a headache he says he has had a headache for the last 24 hours front of the head feels like pressure he feels like his sinuses are clogged up. In addition he just feels weak overall he felt like both of his legs were pretty weak. He was hard for him to get around when he came home from work he just laid down she did not want to walk anymore. He notes that sporadically over the past couple of weeks his right arm has given out on him while at work. He also notes over the past 6 months he has been having small urinary incontinence and has had nocturnal enuresis x1 as well as a couple of small episodes of fecal incontinence. He also notes when he moves his eyes left he has been told he turns his head, but he does not note this until forced, then develops double vision and visual straining. On further review he notes intermittent difficulties swallowing and has been told at times that he mumbles though he feels he does not actually mumble. He does report a prior history of may be is some strokelike symptoms about 25 years ago. He says that he woke up in 1989 and he could not move his left side but he got up and went to work anyway and it gradually went away. In ED had EKG with slight left axis deviation, otherwise NSR. Troponin negative. CT head showed extensive cerebral frontal and parietal lobe white matter hypoattenuation could represent advanced changes of chronic microvascular ischemic disease or changes of extensive inflammatory white matter demyelination such as from multiple sclerosis and a 2 cm wedge-shaped chronic right frontal infarct. He was not aware of any prior abnormal head imaging. MRI completed 11/25/18 in the evening with possibility of supratentorial demyelinating inflammatory disease vs chronic changes found. No infarct. Slightly elevated CSF protein 48.5. Seen by neurology with prior demyelination, not necessarily active disease. Needs neuro follow up. Currently not having any numbness tingling or asymmetric weakness. He wishes to return to work and go home. No CP or SOB. A/P: Chest discomfort - is epigastric discomfort and weakness more than pain. Negative initial EKG - NSR with slight left axis, no TWI or ST segment changes and troponin negative. No abnormal telemetry for the past 14 hours Bilateral leg weakness - with right arm weakness, fecal and urinary incontinence and left visual problems with CT findings concerning for possible lesions I am concerned this may be a presentation of MS or other demyelinating disease. Will get MRI brain and c-spine and consult neuro. need oligoclonal bands, LP checked as well. I have d/w him and his . 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 Will hold off on steroids and defer to neuro Plan: D/c to treat sinusitis F/u with neurology outpatient Discharge Information Condition at Discharge: Improved Follow Up: Weeks (2) Disposition/Orders: D/C to Home Scheduled Amlodipine Besylate (Amlodipine Besylate) 10 Mg Tablet, 10 MG PO DAILY for htn, (Reported) Entered as Reported by: FOREST MATHEW RN on 11/24/18 5967 Last Action: Continued on 11/25/18840 by SANDRITA MACKENZIE MD Doxycycline Hyclate (Doxycycline Hyclate) 100 Mg Tablet, 100 MG PO BID for Sinusitis for 7 Days, #14 Prescribed by: SANDRITA MACKENZIE MD on 11/27/18 1049 Losartan Potassium (Losartan Potassium) 100 Mg Tablet, 100 MG PO DAILY for bp, (Reported) Entered as Reported by: FOREST MATHEW RN on 11/24/182350 Last Action: Converted on 11/25/18840 by SANDRITA MACKENZIE MD Omeprazole (Omeprazole) 40 Mg Capsule.dr, 1 CAP PO DAILY for gerd, #30 Ref 3 (Reported) Entered as Reported by: FOREST MATHEW RN on 11/24/182350 Last Action: Converted on 11/25/18840 by SANDRITA MACKENZIE MD Rosuvastatin Calcium (Crestor) 5 Mg Tablet, 5 MG PO HS for FOR CHOLESTEROL, #30 Ref 0 (Reported) Entered as Reported by: FOREST MATHEW RN on 11/24/182350 Last Action: Converted on 11/25/18840 by SANDRITA MACKENZIE MD Discontinued Medications Cephalexin (Keflex) 500 Mg Capsule, 1 CAP PO TID, #30 Prescribed by: FORREST JOHNSON APRN on 11/10/17 1300 Oxymetazoline Hcl (Nasal Decongestant) 30 Ml [place], 30 ML NS HS for clear sinus before CPAP, (Reported) Entered as Reported by: FOREST MATHEW RN on 11/25/18124 Last Action: Reviewed on 11/25/18124 by JUAN CARLOS TAN CHRISTOPHER S MD November 27, 2018 10:54
[2018-11-27] MEDS ORDERED: POTASSIUM CHLORIDE 20 MEQ TABLET.ER. PO ONE (11:30)
--- NOTE | 2018-11-27 11:32 | NUR ---
SW following for discharge planning. Discussed with RN, pt is discharging home today with . RN advised no SW needs.
--- NOTE | 2018-11-27 11:35 | NUR ---
Discharge Note: BERTRAM GALVAN Discharge instructions and discharge home medications reviewed with Patient and a copy given. All questions have been answered and understanding verbalized. The following instructions and handouts were given: information about follow up appointments, medications, etc. Discontinued lines and drains: IV line in left AC removed, catheter tip intact. Patient discharged to home with self care with , patient ambulated to discharge vehicle.
[2018-11-28 13:19] LABS: WEST NILE IGG CSF Negative (Negative); WEST NILE IGM CSF Negative (Negative)
[2018-11-28 18:09] LABS: ANA INTERP Negative (.)
[2018-11-29 08:15] LABS: HERPES SIMPLEX TYPE 1 Negative (Negative); HERPES SIMPLEX TYPE 2 Negative (Negative)
[2018-12-01 15:16] LABS: ALBUMIN,CSF 26 mg/dL (11-48); ALBUMIN,SERUM 3.9 g/dL (3.5-5.5); CSF IGG INDEX 0.5 (0.0-0.7); IGG,SERUM 760 mg/dL (700-1600)
[2018-12-05 08:22] LABS: VIRAL CULT FINAL No virus isolated. (.)
== END 2018-11-27 11:35 | disposition home or self-care (01) | DRG 60 ==
LOC: ER 18:11 → 2 SOUTH 21:10 → 4 NORTH 11-25 11:47
PROVIDERS: ADMIT Internal Medicine; ATTEND Internal Medicine
PROC: 5A09357 Assistance with Respiratory Ventilation, Less than 24 Consecutive Hours, Continuous Positive Airway Pressure (ICD-10-PCS; 2018-11-25)
PROC: 009U3ZX Drainage of Spinal Canal, Percutaneous Approach, Diagnostic (ICD-10-PCS; principal; 2018-11-26)
PROC: B01B1ZZ Fluoroscopy of Spinal Cord using Low Osmolar Contrast (ICD-10-PCS; 2018-11-26)
DX: G37.9 Demyelinating disease of central nervous system, unspecified (principal); J01.90 Acute sinusitis, unspecified; I10 Essential (primary) hypertension; E78.00 Pure hypercholesterolemia, unspecified; K21.9 Gastro-esophageal reflux disease without esophagitis; E78.5 Hyperlipidemia, unspecified; G47.33 Obstructive sleep apnea (adult) (pediatric); E66.9 Obesity, unspecified; F17.210 Nicotine dependence, cigarettes, uncomplicated; H91.90 Unspecified hearing loss, unspecified ear; R73.9 Hyperglycemia, unspecified; N39.44 Nocturnal enuresis; R07.89 Other chest pain; J32.0 Chronic maxillary sinusitis; Z87.442 Personal history of urinary calculi; Z88.5 Allergy status to narcotic agent; Z68.36 Body mass index [BMI] 36.0-36.9, adult; Z86.73 Personal history of transient ischemic attack (TIA), and cerebral infarction without residual deficits; Z83.3 Family history of diabetes mellitus; Z82.49 Family history of ischemic heart disease and other diseases of the circulatory system
CPT/HCPCS: 36415; 62270; 70450; 70553; 71045; 72156; 80048; 80053; 80307; 81001; 82550; 82607; 82787; 82945; 83036; 83605; 83690; 83735; 83916; 84157; 84439; 84443; 84481; 84484; 85025; 85610; 86038; 86592; 86703; 86788; 86789; 87040; 87071; 87075; 87102; 87252; 87529; 89051; 93005; 96361; 96365; A9575; J3475; J3490; J7030; 99285-25

== ENCOUNTER → 2019-01-05 | Outpatient (CLI) | payer BC ==
[~2019-01-05] MED LIST changes: +AMLO10TA8 PO; +CRESTOR5 MG PO; +DOXY100T PO; +LOSA100T14 PO; +OMEP40CA5 PO; +OXYM-27 NS
--- NOTE | 2019-01-05 13:29 | KCIC ---
Exam : Carotid Duplex with Grayscale Ultrasound and Spectral and Color Doppler Analysis 01/05/2019 1:24 PM Clinical Indications: Visual impairment. Hypertension. Smoking history. Previous stroke. Comparison study: None available. PQRS Compliance Statement - Stenosis calculations for CT, MR and conventional angiography are based upon measurement of the distal ICA diameter in accordance with the NASCET methodology. Stenosis calculations for carotid ultrasound studies are derived from validated velocity criteria which are known to correlate with the NASCET methodology. Findings: The common, internal and external carotid arteries were examined by grayscale, color and spectral Doppler ultrasound. Mild diffuse atherosclerotic vascular disease is seen without visual evidence of high-grade stenosis on color Doppler imaging. The following are the velocities and ratios in the carotid arteries on both sides: RIGHT ICA PV: 59cm/sec RIGHT CCA PV: 101cm/sec RIGHT ICA ED: 22cm/sec RIGHT IC/CCPV: Less than 2 RIGHT VERTEBRAL: antegrade flow LEFT ICA PV: 60cm/sec LEFT CCA PV: 86cm/sec LEFT ICA ED: 21cm/sec LEFT IC/CCPV: Less than 2 LEFT VERTEBRAL: antegrade flow <50% ICA Stenosis: PSV < 125cm/s (EDV < 40cm/s; SVR < 2.0) 50-69% ICA Stenosis: PSV < 125-229cm/s (EDV 40-99cm/s; SVR 2.0-3.9) >70% ICA Stenosis: PSV > 230cm/s (EDV >100cm/s; SVR >4.0) Impression: Mild atherosclerotic vascular disease with less than 50 percent stenosis of the bilateral internal carotid arteries by ultrasound criterion Electronically signed by: Eduardo Orourke MD (01/05/2019 1:26 PM) [id number]
== END | disposition home or self-care (01) ==
LOC: KCIC US 10:36
PROVIDERS: ATTEND Psychiatry & Neurology Neurology
DX: I65.23 Occlusion and stenosis of bilateral carotid arteries (principal); H53.9 Unspecified visual disturbance; I10 Essential (primary) hypertension; Z87.891 Personal history of nicotine dependence; Z86.73 Personal history of transient ischemic attack (TIA), and cerebral infarction without residual deficits
CPT/HCPCS: 93880